=== PATIENT | female | born 1965 | race African-American/Black ===

== ENCOUNTER 2018-04-17 13:25 | Inpatient (IN) | payer MEDICARE, MEDICAID ==
[2018-04-17] VITALS (13 sets, daily range): BP systolic 171–201; BP diastolic 100–121
[~2018-04-17] VITALS: Ht 165.1 cm; Wt 74.8 kg
[~2018-04-17 13:25] MED LIST: AMLO10TA4 PO; CALC0.253 PO; CALC667C4 PO; CHOL500010 PO; CLON0.1T PO; DIAZ10TA4 PO; LOSA50TA20 PO; METO-539 PO; NEPVIT PO; OMEP20CA10 PO; ROSU10TA PO
[2018-04-17] MEDS: NITROGLYCERIN 0.4MG TABLET SL SL PRN ×4 (13:57→21:58)
[2018-04-17 14:43] LABS: BASOPHILS % 0.8 % (0.0-2.0); HEMATOCRIT. 27.6 % (36.0-48.0); LYMPHOCYTES % 13.9 % (20.0-50.0); MEAN CORPUSCULAR HEMOGLOBIN 29.1 pg (28.0-32.0); MEAN CORPUSCULAR VOLUME 89.8 fL (81.0-99.0); MEAN PLATELET VOLUME 8.1 fl (7.4-10.4); MONOCYTES % 1.9 % (2.0-8.0); NEUTROPHILS % 80.4 % (40.0-76.0); PLATELET 134 x1000/uL (130-400); RED BLOOD CELL COUNT 3.07 mill/uL (4.2-5.4); RED CELL DISTRIBUTION WIDTH 19.8 % (11.6-14.6)
[2018-04-17 14:47] LABS: CHLORIDE 101 mEq/L (98-107)
[2018-04-17] MEDS ORDERED: HYDRALAZINE 20MG/ML VIAL IV ONE (15:30)
[2018-04-17 15:50] LABS: BG BASE EXCESS -0.4 mmol/L (-2.0-2.0); BG DEOXYHEMOGLOBIN 5.8 % (0.0-5.0); BG FRACTION INSPIRED OXYGEN 100; BG HCO3 ACT 22.7 mmol/L (22.0-26.0); BG METHEMOGLOBIN 0.3 % (0.0-1.5); BG OXYGEN SATURATION 94.1 % (92.0-98.5); BG OXYHEMOGLOBIN 92.9 % (94.0-97.0); BG PCO2 31.5 mmHg (35.0-45.0); BG PH 7.476 (7.350-7.450); BG PO2 75.8 mmHg (75.0-100.0); BG SAMPLE SITE RIGHT RADIAL; BG TOTAL HEMOGLOBIN 9.3 g/dL (12.0-18.0); BG VENT MODE MASK - NRB
[2018-04-17] MEDS: AMLODIPINE 10MG TABLET PO SCH (18:00)
[2018-04-17] MEDS ORDERED: MORPHINE SULFATE 4 MG/ML CPJ (NOT FOR IM USE) IV PRN (18:00)
[2018-04-17] MEDS ORDERED: HYDROCODONE/ACETAMINOPHEN 5/325MG TABLET PO PRN (18:00)
[2018-04-17] MEDS ORDERED: DOCUSATE SODIUM 100MG CAPSULE PO PRN (18:00)
[2018-04-17] MEDS ORDERED: DIPHENHYDRAMINE 50MG/ML VIAL IV PRN (18:00)
[2018-04-17] MEDS ORDERED: ONDANSETRON HCL 4MG/2ML VIAL IV PRN (18:00)
[2018-04-17] MEDS: LOSARTAN POTASSIUM 50 MG TABLET PO SCH (18:30)
[2018-04-17] MEDS: CLONIDINE 0.1MG TABLET PO PRN (20:34)
[2018-04-17] MEDS: ACETAMINOPHEN 325MG TABLET PO PRN (22:02)
[2018-04-18] VITALS (14 sets, daily range): BP systolic 157–195; BP diastolic 76–110
[2018-04-18] MEDS: CLONIDINE 0.1MG TABLET PO PRN ×2 (02:58→18:07)
[2018-04-18] MEDS: LOSARTAN POTASSIUM 50 MG TABLET PO SCH (05:06)
[2018-04-18] MEDS: AMLODIPINE 10MG TABLET PO SCH (05:07)
[2018-04-18] MEDS: HYDRALAZINE HCL 50MG TABLET PO SCH ×4 (07:11→21:13)
[2018-04-18 07:37] LABS: BASOPHILS % 0.4 % (0.0-2.0); EOSINOPHILS % 1.2 % (0.0-5.0); HEMATOCRIT. 25.8 % (36.0-48.0); HEMOGLOBIN. 8.4 g/dL (12.0-16.0); LYMPHOCYTES % 12.7 % (20.0-50.0); MEAN CORPUSCULAR HEMOGLOBIN 29.1 pg (28.0-32.0); MEAN CORPUSCULAR VOLUME 89.3 fL (81.0-99.0); MEAN PLATELET VOLUME 8.9 fl (7.4-10.4); MONOCYTES % 1.9 % (2.0-8.0); NEUTROPHILS % 83.8 % (40.0-76.0); PLATELET 122 x1000/uL (130-400); RED BLOOD CELL COUNT 2.89 mill/uL (4.2-5.4); RED CELL DISTRIBUTION WIDTH 20.3 % (11.6-14.6)
[2018-04-18] MEDS ORDERED: SEVELAMER CARBONATE 800 MG TABLET PO SCH ×2 (08:00→13:00)
[2018-04-18 08:16] LABS: CHLORIDE 98 mEq/L (98-107)
[2018-04-18] MEDS: ASPIRIN 81MG EC TABLET PO SCH ×2 (08:54→16:06)
[2018-04-18] MEDS ORDERED: HYDRALAZINE HCL 50MG TABLET PO SCH (09:00)
[2018-04-18] MEDS: SEVELAMER CARBONATE 800 MG TABLET PO SCH ×3 (09:02→18:54)
[2018-04-18] MEDS: METOPROLOL TARTRATE 25MG TABLET PO SCH ×2 (09:03→17:07)
[2018-04-18] MEDS: CLONIDINE 0.2MG TABLET PO SCH ×3 (13:23→21:13)
[2018-04-18] MEDS: ACETAMINOPHEN 325MG TABLET PO PRN (13:54)
[2018-04-18 16:19] LABS: BG BASE EXCESS 1.8 mmol/L (-2.0-2.0); BG CARBOXYHEMOGLOBIN 1.2 % (0.5-1.5); BG FRACTION INSPIRED OXYGEN 40; BG HCO3 ACT 25.3 mmol/L (22.0-26.0); BG OXYGEN SATURATION 93.9 % (92.0-98.5); BG OXYHEMOGLOBIN 92.8 % (94.0-97.0); BG PCO2 35.6 mmHg (35.0-45.0); BG PO2 69.8 mmHg (75.0-100.0); BG SAMPLE SITE RIGHT RADIAL; BG TOTAL HEMOGLOBIN 9.8 g/dL (12.0-18.0); BG VENT MODE NASAL CANNULA
[2018-04-18] MEDS ORDERED: HYDRALAZINE HCL 100MG TABLET PO SCH (22:00)
[2018-04-18] MEDS ORDERED: HYDRALAZINE HCL 50MG TABLET PO NR (22:15)
[2018-04-18] MEDS: ZOLPIDEM TARTRATE 5MG TABLET PO PRN (22:17)
[2018-04-19] VITALS (14 sets, daily range): BP systolic 149–205; BP diastolic 92–117
[2018-04-19] MEDS: CLONIDINE 0.1MG TABLET PO PRN ×2 (00:10→09:54)
[2018-04-19] MEDS: HYDRALAZINE HCL 100MG TABLET PO SCH ×3 (05:28→21:09)
[2018-04-19] MEDS: CLONIDINE 0.2MG TABLET PO SCH ×3 (05:28→21:10)
[2018-04-19] MEDS: SEVELAMER CARBONATE 800 MG TABLET PO SCH ×3 (08:42→17:36)
[2018-04-19] MEDS: LOSARTAN POTASSIUM 50 MG TABLET PO SCH (08:52)
[2018-04-19] MEDS: ASPIRIN 81MG EC TABLET PO SCH (08:52)
[2018-04-19] MEDS: METOPROLOL TARTRATE 25MG TABLET PO SCH ×2 (08:52→17:36)
[2018-04-19] MEDS: AMLODIPINE 10MG TABLET PO SCH (08:53)
[2018-04-19 11:59] LABS: EOSINOPHILS % 3.9 % (0.0-5.0); HEMATOCRIT. 26.1 % (36.0-48.0); HEMOGLOBIN. 8.5 g/dL (12.0-16.0); LYMPHOCYTES % 15.6 % (20.0-50.0); MEAN CORPUSCULAR HEMOGLOBIN 29.5 pg (28.0-32.0); MEAN CORPUSCULAR VOLUME 90.1 fL (81.0-99.0); MEAN PLATELET VOLUME 8.9 fl (7.4-10.4); MONOCYTES % 2.7 % (2.0-8.0); NEUTROPHILS % 76.8 % (40.0-76.0); PLATELET 128 x1000/uL (130-400); RED BLOOD CELL COUNT 2.89 mill/uL (4.2-5.4); RED CELL DISTRIBUTION WIDTH 19.6 % (11.6-14.6)
[2018-04-19] MEDS: ACETAMINOPHEN 325MG TABLET PO PRN (12:16)
[2018-04-19] MEDS: ZOLPIDEM TARTRATE 5MG TABLET PO PRN (21:09)
[2018-04-20] VITALS: BP 168/99
[2018-04-20 02:00] VITALS: BP 177/97
[2018-04-20] MEDS: CLONIDINE 0.1MG TABLET PO PRN (02:05)
[2018-04-20 04:00] VITALS: BP 193/95
[2018-04-20] MEDS: ACETAMINOPHEN 325MG TABLET PO PRN (04:47)
[2018-04-20] MEDS: HYDRALAZINE HCL 100MG TABLET PO SCH (05:02)
[2018-04-20] MEDS: CLONIDINE 0.2MG TABLET PO SCH (05:02)
[2018-04-20 06:00] VITALS: BP 161/90
[2018-04-20 07:16] LABS: BASOPHILS % 0.6 % (0.0-2.0); EOSINOPHILS % 4.3 % (0.0-5.0); HEMATOCRIT. 25.2 % (36.0-48.0); HEMOGLOBIN. 8.2 g/dL (12.0-16.0); LYMPHOCYTES % 19.3 % (20.0-50.0); MEAN CORPUSCULAR HEMOGLOBIN 29.3 pg (28.0-32.0); MEAN CORPUSCULAR VOLUME 90.4 fL (81.0-99.0); MEAN PLATELET VOLUME 8.6 fl (7.4-10.4); MONOCYTES % 1.9 % (2.0-8.0); NEUTROPHILS % 73.9 % (40.0-76.0); PLATELET 144 x1000/uL (130-400); RED BLOOD CELL COUNT 2.79 mill/uL (4.2-5.4); RED CELL DISTRIBUTION WIDTH 19.7 % (11.6-14.6)
[2018-04-20] MEDS: LOSARTAN POTASSIUM 50 MG TABLET PO SCH (08:56)
[2018-04-20] MEDS: SEVELAMER CARBONATE 800 MG TABLET PO SCH (08:56)
[2018-04-20] MEDS: ASPIRIN 81MG EC TABLET PO SCH (08:57)
[2018-04-20] MEDS: METOPROLOL TARTRATE 25MG TABLET PO SCH (08:57)
[2018-04-20] MEDS: AMLODIPINE 10MG TABLET PO SCH (08:57)
[2018-04-20] MEDS ORDERED: MINOXIDIL 2.5MG TABLET PO SCH (15:45)
== END 2018-04-20 11:05 | disposition left against medical advice (07) | DRG 291 ==
LOC: ER 13:25 → 5EST 15:21 → EDBEDREQ 15:27 → EDBEDREQTM 15:27 → EDBEDREQSVC 16:48 → ENRESERV 16:50 → SUPCPDRO 17:51
PROVIDERS: ADMIT Hospitalist; ATTEND Hospitalist
PROC: 5A09357 Assistance with Respiratory Ventilation, Less than 24 Consecutive Hours, Continuous Positive Airway Pressure (ICD-10-PCS; principal; 2018-04-17)
PROC: 5A1D70Z Performance of Urinary Filtration, Intermittent, Less than 6 Hours Per Day (ICD-10-PCS; 2018-04-17)
PROC: 5A1D70Z Performance of Urinary Filtration, Intermittent, Less than 6 Hours Per Day (ICD-10-PCS; 2018-04-18)
PROC: 5A1D70Z Performance of Urinary Filtration, Intermittent, Less than 6 Hours Per Day (ICD-10-PCS; 2018-04-20)
DX: I13.2 Hypertensive heart and chronic kidney disease with heart failure and with stage 5 chronic kidney disease, or end stage renal disease (principal); I50.33 Acute on chronic diastolic (congestive) heart failure; N18.6 End stage renal disease; N25.81 Secondary hyperparathyroidism of renal origin; Z53.21 Procedure and treatment not carried out due to patient leaving prior to being seen by health care provider; E87.5 Hyperkalemia; I16.0 Hypertensive urgency; R09.02 Hypoxemia; D63.1 Anemia in chronic kidney disease; E78.5 Hyperlipidemia, unspecified; Z99.2 Dependence on renal dialysis; Z91.15 Patient's noncompliance with renal dialysis; Z88.5 Allergy status to narcotic agent; Z79.899 Other long term (current) drug therapy
CPT/HCPCS: 36415; 36600; 71045; 80048; 80053; 82375; 82805; 83880; 84484; 85025; 93005; 93306; 96374; 99291; J0360; J7030

== ENCOUNTER 2018-07-21 11:27 | Inpatient (IN) | payer MEDICARE, MEDICAID ==
[~2018-07-21] VITALS: Ht 152.4 cm; Wt 74.8 kg
[2018-07-21 14:23] LABS: HEMATOCRIT. 38.6 % (36.0-48.0); HEMOGLOBIN. 12.5 g/dL (12.0-16.0); MEAN CORPUSCULAR HEMOGLOBIN 30.7 pg (28.0-32.0); MEAN CORPUSCULAR VOLUME 94.5 fL (81.0-99.0); PLATELET 102 x1000/uL (130-400); RED BLOOD CELL COUNT 4.08 mill/uL (4.2-5.4); RED CELL DISTRIBUTION WIDTH 17.6 % (11.6-14.6)
[2018-07-21] MEDS ORDERED: HYDRALAZINE 20MG/ML VIAL IV ONE (14:30)
[2018-07-21 14:40] LABS: CHLORIDE 95 mEq/L (98-107)
[2018-07-21] MEDS ORDERED: NICARDIPINE 50 MG in SODIUM CHLORIDE 0.9% 230 ML IV PRN (17:15)
[2018-07-21] MEDS: NIFEDIPINE XL 60MG TAB PO SCH (18:05)
[2018-07-21] MEDS ORDERED: FOLIC ACID/VITAMIN B COMP W-C TABLET PO NR (18:15)
[2018-07-21] MEDS: NITROPRUSSIDE IV PRN (21:49)
[2018-07-21] MEDS: WATER IV PRN (21:49)
[2018-07-21] MEDS: DEXT 5% IV PRN (21:49)
[2018-07-21 23:17] VITALS: BP 178/104
[2018-07-21 23:20] VITALS: BP 178/98
[2018-07-21 23:30] VITALS: BP 169/93
[2018-07-21 23:45] VITALS: BP 173/93
[2018-07-22] VITALS (47 sets, daily range): BP systolic 132–190; BP diastolic 70–108
[2018-07-22] MEDS ORDERED: HYDRALAZINE HCL 100MG TABLET PO SCH ×2 (06:00→21:00)
[2018-07-22 06:15] LABS: BASOPHILS % 0.5 % (0.0-2.0); EOSINOPHILS % 2.6 % (0.0-5.0); HEMATOCRIT. 33.8 % (36.0-48.0); LYMPHOCYTES % 20.2 % (20.0-50.0); MEAN CORPUSCULAR HEMOGLOBIN 30.7 pg (28.0-32.0); MEAN CORPUSCULAR VOLUME 94.4 fL (81.0-99.0); MEAN PLATELET VOLUME 8.9 fl (7.4-10.4); MONOCYTES % 7.8 % (2.0-8.0); NEUTROPHILS % 68.9 % (40.0-76.0); PLATELET 114 x1000/uL (130-400); RED BLOOD CELL COUNT 3.58 mill/uL (4.2-5.4); RED CELL DISTRIBUTION WIDTH 17.4 % (11.6-14.6)
[2018-07-22 06:35] LABS: CHLORIDE 100 mEq/L (98-107)
[2018-07-22] MEDS: DEXT 5% IV PRN (07:54)
[2018-07-22] MEDS: WATER IV PRN (07:54)
[2018-07-22] MEDS: NITROPRUSSIDE IV PRN (07:54)
[2018-07-22] MEDS: FOLIC ACID/VITAMIN B COMP W-C TABLET PO SCH ×2 (09:20→11:27)
[2018-07-22] MEDS: CALCIUM ACETATE 667MG CAPSULE PO SCH ×3 (09:21→17:27)
[2018-07-22] MEDS: NIFEDIPINE XL 60MG TAB PO SCH ×2 (09:24→16:36)
[2018-07-22] MEDS ORDERED: HYDR100T26 PO (10:10)
[2018-07-22] MEDS ORDERED: LOSA100T3 PO (10:10)
[2018-07-22] MEDS ORDERED: LABE100T5 PO (10:10)
[2018-07-22] MEDS ORDERED: AMLODIPINE 10MG TABLET PO SCH (10:15)
[2018-07-22] MEDS: LABETALOL HCL 300MG TABLET PO SCH ×2 (11:28→22:49)
[2018-07-22] MEDS: ONDANSETRON HCL 4MG/2ML INJ IV PRN ×2 (16:35→22:55)
[2018-07-22] MEDS: HYDRALAZINE HCL 100MG TABLET PO SCH (16:36)
[2018-07-22] MEDS: ATORVASTATIN CALCIUM 10MG TABLET PO SCH (22:49)
[2018-07-23] VITALS (64 sets, daily range): BP systolic 107–205; BP diastolic 62–120
[2018-07-23] MEDS: DEXT 5% IV PRN ×3 (00:10→17:45)
[2018-07-23] MEDS: WATER IV PRN ×3 (00:10→17:45)
[2018-07-23] MEDS: NITROPRUSSIDE IV PRN ×3 (00:10→17:45)
[2018-07-23] MEDS ORDERED: SIMETHICONE 80MG TABLET CHEW PO PRN (05:00)
[2018-07-23] MEDS: CALCIUM ACETATE 667MG CAPSULE PO SCH ×3 (08:16→17:44)
[2018-07-23] MEDS: LOSARTAN POTASSIUM 100 MG TABLET PO SCH (08:16)
[2018-07-23] MEDS: NIFEDIPINE XL 60MG TAB PO SCH ×2 (08:17→17:44)
[2018-07-23] MEDS: HYDRALAZINE HCL 100MG TABLET PO SCH ×3 (08:17→17:44)
[2018-07-23] MEDS: SIMETHICONE 80MG TABLET CHEW PO PRN ×3 (08:23→20:42)
[2018-07-23] MEDS: PANTOPRAZOLE 40MG DR TABLET PO SCH ×2 (09:31→20:37)
[2018-07-23] MEDS: LABETALOL HCL 300MG TABLET PO SCH ×2 (09:31→20:37)
[2018-07-23] MEDS: ONDANSETRON HCL 4MG/2ML INJ IV PRN ×2 (09:43→19:15)
[2018-07-23 10:12] LABS: BASOPHILS % 0.4 % (0.0-2.0); EOSINOPHILS % 0.5 % (0.0-5.0); HEMATOCRIT. 34.7 % (36.0-48.0); HEMOGLOBIN. 11.3 g/dL (12.0-16.0); LYMPHOCYTES % 16.5 % (20.0-50.0); MEAN CORPUSCULAR HEMOGLOBIN 30.5 pg (28.0-32.0); MEAN CORPUSCULAR VOLUME 93.4 fL (81.0-99.0); MEAN PLATELET VOLUME 9.1 fl (7.4-10.4); MONOCYTES % 6.3 % (2.0-8.0); NEUTROPHILS % 76.3 % (40.0-76.0); PLATELET 105 x1000/uL (130-400); RED BLOOD CELL COUNT 3.72 mill/uL (4.2-5.4); RED CELL DISTRIBUTION WIDTH 17.5 % (11.6-14.6)
[2018-07-23] MEDS ORDERED: HEPARIN SODIUM 1,000 UNIT/1ML VIAL IV NR (13:30)
[2018-07-23] MEDS: ATORVASTATIN CALCIUM 10MG TABLET PO SCH (20:36)
[2018-07-23] MEDS: ZOLPIDEM TARTRATE 5MG TABLET PO PRN (20:37)
[2018-07-23] MEDS: CLONIDINE 0.2MG TABLET PO SCH (22:11)
[2018-07-24] VITALS (56 sets, daily range): BP systolic 106–200; BP diastolic 59–104
[2018-07-24] MEDS: DEXT 5% IV PRN ×2 (01:03→08:59)
[2018-07-24] MEDS: NITROPRUSSIDE IV PRN ×2 (01:03→08:59)
[2018-07-24] MEDS: WATER IV PRN ×2 (01:03→08:59)
[2018-07-24] MEDS: CLONIDINE 0.2MG TABLET PO SCH ×3 (05:37→21:43)
[2018-07-24 06:10] LABS: BASOPHILS % 0.2 % (0.0-2.0); EOSINOPHILS % 0.2 % (0.0-5.0); HEMATOCRIT. 37.1 % (36.0-48.0); HEMOGLOBIN. 11.9 g/dL (12.0-16.0); LYMPHOCYTES % 22.8 % (20.0-50.0); MEAN CORPUSCULAR VOLUME 93.4 fL (81.0-99.0); MEAN PLATELET VOLUME 8.7 fl (7.4-10.4); MONOCYTES % 7.2 % (2.0-8.0); NEUTROPHILS % 69.6 % (40.0-76.0); PLATELET 130 x1000/uL (130-400); RED BLOOD CELL COUNT 3.98 mill/uL (4.2-5.4)
[2018-07-24] MEDS: PANTOPRAZOLE 40MG DR TABLET PO SCH ×2 (09:05→20:22)
[2018-07-24] MEDS: CALCIUM ACETATE 667MG CAPSULE PO SCH ×3 (09:05→17:32)
[2018-07-24] MEDS: FOLIC ACID/VITAMIN B COMP W-C TABLET PO SCH (09:05)
[2018-07-24] MEDS: NIFEDIPINE XL 60MG TAB PO SCH ×2 (09:05→17:33)
[2018-07-24] MEDS: LOSARTAN POTASSIUM 100 MG TABLET PO SCH (09:05)
[2018-07-24] MEDS: LABETALOL HCL 300MG TABLET PO SCH ×2 (09:05→20:23)
[2018-07-24] MEDS: HYDRALAZINE HCL 100MG TABLET PO SCH ×3 (09:06→17:33)
[2018-07-24] MEDS: SIMETHICONE 80MG TABLET CHEW PO PRN ×3 (09:11→21:43)
[2018-07-24] MEDS: MINOXIDIL 2.5MG TABLET PO SCH ×2 (11:19→20:23)
[2018-07-24 13:10] LABS: HCG SCREEN NEGATIVE
[2018-07-24] MEDS: SILDENAFIL CITRATE 20MG TABLET PO SCH ×2 (13:53→21:43)
[2018-07-24] MEDS: ATORVASTATIN CALCIUM 10MG TABLET PO SCH (20:23)
[2018-07-24] MEDS: ZOLPIDEM TARTRATE 5MG TABLET PO PRN (21:49)
[2018-07-25] VITALS (35 sets, daily range): BP systolic 102–156; BP diastolic 56–104
[2018-07-25] MEDS: CLONIDINE 0.2MG TABLET PO SCH ×2 (06:32→14:00)
[2018-07-25] MEDS: SILDENAFIL CITRATE 20MG TABLET PO SCH ×2 (06:32→14:00)
[2018-07-25 06:33] LABS: BASOPHILS % 0.4 % (0.0-2.0); EOSINOPHILS % 1.6 % (0.0-5.0); HEMATOCRIT. 39.1 % (36.0-48.0); HEMOGLOBIN. 12.7 g/dL (12.0-16.0); LYMPHOCYTES % 31.1 % (20.0-50.0); MEAN CORPUSCULAR HEMOGLOBIN 30.3 pg (28.0-32.0); MEAN CORPUSCULAR VOLUME 93.7 fL (81.0-99.0); MEAN PLATELET VOLUME 8.8 fl (7.4-10.4); MONOCYTES % 8.3 % (2.0-8.0); NEUTROPHILS % 58.6 % (40.0-76.0); PLATELET 151 x1000/uL (130-400); RED BLOOD CELL COUNT 4.17 mill/uL (4.2-5.4); RED CELL DISTRIBUTION WIDTH 17.6 % (11.6-14.6)
[2018-07-25] MEDS: CALCIUM ACETATE 667MG CAPSULE PO SCH ×2 (08:46→13:12)
[2018-07-25] MEDS: PANTOPRAZOLE 40MG DR TABLET PO SCH (08:46)
[2018-07-25] MEDS: SIMETHICONE 80MG TABLET CHEW PO PRN ×2 (08:46→08:47)
[2018-07-25] MEDS: HYDRALAZINE HCL 100MG TABLET PO SCH ×2 (08:47→14:43)
[2018-07-25] MEDS: NIFEDIPINE XL 60MG TAB PO SCH ×2 (09:00→17:00)
[2018-07-25] MEDS: LOSARTAN POTASSIUM 100 MG TABLET PO SCH (09:00)
[2018-07-25] MEDS: LABETALOL HCL 300MG TABLET PO SCH ×2 (09:00→14:43)
[2018-07-25] MEDS: MINOXIDIL 2.5MG TABLET PO SCH (09:00)
[2018-07-25] MEDS: FOLIC ACID/VITAMIN B COMP W-C TABLET PO SCH (09:21)
[2018-07-25] MEDS ORDERED: MINO2.5T2 PO (16:11)
[2018-07-25] MEDS ORDERED: NIFE60TA64 PO (16:11)
[2018-07-25] MEDS ORDERED: HYDR-4134 PO (16:11)
[2018-07-25] MEDS ORDERED: LABE300T3 PO (16:11)
[2018-07-25] MEDS ORDERED: LOSA100T14 MT (16:11)
[2018-07-25] MEDS ORDERED: REV20 PO (16:11)
[2018-07-25] MEDS ORDERED: NIFE90TA2 PO (16:11)
[2018-07-25] MEDS ORDERED: CLON0.2T PO (16:23)
[2018-08-02 15:11] LABS: 7-AMINOCLONAZEPAM CONFIRM Negative (.); ALPRAZOLAM CONFIRM Negative (.); CHLORDIAZEPOXIDE CONFIRM Negative (.); CLONAZEPAM CONFIRM Negative (.); DESMETHYLCHLORDIAZEPOXIDE Negative (.); DIAZEPAM CONFIRM Negative (.); FLURAZEPAM CONFIRM Negative (.); LORAZEPAM CONFIRM Negative (.); MIDAZOLAM CONFIRM Negative (.); OXAZEPAM CONFIRM Negative (.); TEMAZEPAM CONFIRM Negative (.); TRIAZOLAM CONFIRM Negative (.)
== END 2018-07-25 17:15 | disposition home or self-care (01) | DRG 304 ==
LOC: ER 12:43 → CVICU 16:41 → EDBEDREQTM 16:43 → EDBEDREQ 16:43 → ENRESERV 19:27 → EDBEDREQSVC 20:39 → EDBEDREQTM 20:39 → EDBEDREQSVC 20:57 → ENRESERV 21:16
PROVIDERS: ADMIT Internal Medicine; ATTEND Internal Medicine
PROC: 5A1D70Z Performance of Urinary Filtration, Intermittent, Less than 6 Hours Per Day (ICD-10-PCS; principal; 2018-07-23)
DX: I16.1 Hypertensive emergency (principal); N18.6 End stage renal disease; I50.32 Chronic diastolic (congestive) heart failure; I13.2 Hypertensive heart and chronic kidney disease with heart failure and with stage 5 chronic kidney disease, or end stage renal disease; Z99.2 Dependence on renal dialysis; D63.1 Anemia in chronic kidney disease; I27.20 Pulmonary hypertension, unspecified; F41.9 Anxiety disorder, unspecified; Z82.49 Family history of ischemic heart disease and other diseases of the circulatory system; Z88.6 Allergy status to analgesic agent; Z91.19 Patient's noncompliance with other medical treatment and regimen; Z79.899 Other long term (current) drug therapy
CPT/HCPCS: 36415; 71045; 78707; 80048; 80307; 82164; 82533; 83735; 83880; 84244; 84484; 84703; 93005; 93306; 96374; 97162; 99285; A9562; C1893; J0360; J1644; J2405; J3490; J7030; J7060

== ENCOUNTER 2018-11-24 10:00 | Inpatient (IN) | payer MEDICARE, MEDICAID ==
[~2018-11-24] VITALS: Ht 165.1 cm; Wt 69.9 kg
[~2018-11-24 10:00] MED LIST changes: -CLON0.1T PO; +CLON0.2T PO; -DIAZ10TA4 PO; +HYDR-4134 PO; +LABE100T5 PO; +LOSA100T3 PO; -LOSA50TA20 PO; -METO-539 PO; +MINO2.5T2 PO; +NIFE60TA64 PO; +REV20 PO
[2018-11-24 10:47] LABS: BASOPHILS % 0.5 % (0.0-2.0); EOSINOPHILS % 0.6 % (0.0-5.0); HEMATOCRIT. 29.3 % (36.0-48.0); HEMOGLOBIN. 9.8 g/dL (12.0-16.0); LYMPHOCYTES % 21.8 % (20.0-50.0); MEAN CORPUSCULAR HEMOGLOBIN 31.6 pg (28.0-32.0); MEAN CORPUSCULAR VOLUME 94.8 fL (81.0-99.0); MEAN PLATELET VOLUME 9.1 fl (7.4-10.4); MONOCYTES % 1.8 % (2.0-8.0); NEUTROPHILS % 75.3 % (40.0-76.0); PLATELET 138 x1000/uL (130-400); RED BLOOD CELL COUNT 3.09 mill/uL (4.2-5.4); RED CELL DISTRIBUTION WIDTH 16.1 % (11.6-14.6)
[2018-11-24 10:53] LABS: CHLORIDE 94 mEq/L (98-107)
[2018-11-24 12:14] LABS: BG BASE EXCESS 7.5 mmol/L (-2.0-2.0); BG CARBOXYHEMOGLOBIN 1.4 % (0.5-1.5); BG DEOXYHEMOGLOBIN 14.7 % (0.0-5.0); BG METHEMOGLOBIN 0.3 % (0.0-1.5); BG OXYHEMOGLOBIN 83.6 % (94.0-97.0); BG PCO2 39.1 mmHg (35.0-45.0); BG PH 7.517 (7.350-7.450); BG PO2 50.2 mmHg (75.0-100.0); BG SAMPLE SITE RIGHT RADIAL; BG TOTAL HEMOGLOBIN 10.1 g/dL (12.0-18.0); BG VENT MODE NASAL CANNULA
[2018-11-24] MEDS ORDERED: HYDRALAZINE 20MG/ML VIAL IV ONE (12:15)
[2018-11-24] MEDS: CLONIDINE 0.2MG TABLET PO SCH ×2 (16:09→21:11)
[2018-11-24] MEDS ORDERED: NIFEDIPINE XL 60MG TAB PO NR (16:15)
[2018-11-24] MEDS ORDERED: ACETAMINOPHEN 325MG TABLET PO PRN (17:30)
[2018-11-24] MEDS ORDERED: DOCUSATE SODIUM 100MG CAPSULE PO PRN (17:30)
[2018-11-24] MEDS ORDERED: GUAIFENESIN 200MG/10ML SUGAR FREE UDC PO PRN (17:30)
[2018-11-24] MEDS ORDERED: IPRATROPIUM/ALBUTEROL 0.5-3(2.5)MG/3ML NEB INH PRN (17:30)
[2018-11-24] MEDS ORDERED: ONDANSETRON HCL 4MG/2ML INJ IV PRN (17:30)
[2018-11-24] MEDS ORDERED: MAGNESIUM/ALUMINUM HYDROXIDE/SIMETHICONE 30ML UDC PO PRN (17:30)
[2018-11-24] MEDS: NIFEDIPINE XL 60MG TAB PO SCH (17:54)
[2018-11-24] MEDS: LOSARTAN POTASSIUM 50 MG TABLET PO SCH ×2 (17:54→21:12)
[2018-11-24 18:00] VITALS: BP_SYST 177; BP_SYST 183; BP_DIAS 102; BP_DIAS 98
[2018-11-24] MEDS: CLONIDINE 0.1MG TABLET PO PRN (18:00)
[2018-11-24] MEDS ORDERED: INFLUENZA VIRUS VACCINE(AFLURIA) 0.5ML SYR IM ONE (19:30)
[2018-11-24 20:00] VITALS: BP 188/96
[2018-11-24] MEDS: HYDRALAZINE HCL 50MG TABLET PO SCH (21:13)
[2018-11-24] MEDS: SILDENAFIL CITRATE 20MG TABLET PO SCH (21:14)
[2018-11-24] MEDS: SODIUM CHLORIDE 0.9% INJ 3ML FLUSH IVF SCH (21:16)
[2018-11-24] MEDS: LORAZEPAM 0.5MG TABLET PO PRN (21:21)
[2018-11-24 22:00] VITALS: BP 148/78
[2018-11-25] VITALS (12 sets, daily range): BP systolic 143–179; BP diastolic 81–95
[2018-11-25] MEDS ORDERED: LOSA50TA20 PO (05:59)
[2018-11-25] MEDS ORDERED: MINO2.5T2 PO (05:59)
[2018-11-25] MEDS ORDERED: LABE100T5 MT (05:59)
[2018-11-25] MEDS ORDERED: CLON0.2T MT (05:59)
[2018-11-25] MEDS ORDERED: NIFE90TA43 PO (05:59)
[2018-11-25] MEDS: SILDENAFIL CITRATE 20MG TABLET PO SCH ×3 (06:00→21:23)
[2018-11-25] MEDS: HYDRALAZINE HCL 50MG TABLET PO SCH (06:19)
[2018-11-25] MEDS: SODIUM CHLORIDE 0.9% INJ 3ML FLUSH IVF SCH ×3 (06:20→21:23)
[2018-11-25] MEDS: CLONIDINE 0.2MG TABLET PO SCH ×2 (08:29→21:22)
[2018-11-25] MEDS: NIFEDIPINE XL 60MG TAB PO SCH ×2 (08:29→21:21)
[2018-11-25] MEDS: LOSARTAN POTASSIUM 50 MG TABLET PO SCH ×2 (08:29→21:21)
[2018-11-25 08:51] LABS: BASOPHILS % 0.9 % (0.0-2.0); EOSINOPHILS % 1.7 % (0.0-5.0); HEMATOCRIT. 27.1 % (36.0-48.0); LYMPHOCYTES % 19.2 % (20.0-50.0); MEAN CORPUSCULAR HEMOGLOBIN 31.4 pg (28.0-32.0); MEAN CORPUSCULAR VOLUME 94.1 fL (81.0-99.0); MEAN PLATELET VOLUME 8.7 fl (7.4-10.4); MONOCYTES % 2.2 % (2.0-8.0); PLATELET 159 x1000/uL (130-400); RED BLOOD CELL COUNT 2.87 mill/uL (4.2-5.4)
[2018-11-25 09:11] LABS: CHLORIDE 98 mEq/L (98-107)
[2018-11-25 09:20] LABS: LDL CHOLESTEROL 85 mg/dL (5-100)
[2018-11-25 09:21] LABS: CREATINE KINASE 211 IU/L (26-192); CREATINE KINASE MB FRACTION < 1.0 ng/mL (0.5-3.6); HDL CHOLESTEROL 43 mg/dL (40-59)
[2018-11-25] MEDS: HYDRALAZINE HCL 100MG TABLET PO SCH ×2 (15:39→21:21)
[2018-11-25] MEDS: LORAZEPAM 0.5MG TABLET PO PRN (21:21)
[2018-11-26] VITALS (12 sets, daily range): BP systolic 145–171; BP diastolic 76–98
[2018-11-26] MEDS: SODIUM CHLORIDE 0.9% INJ 3ML FLUSH IVF SCH ×3 (06:00→21:23)
[2018-11-26] MEDS: SILDENAFIL CITRATE 20MG TABLET PO SCH ×3 (06:00→21:23)
[2018-11-26] MEDS: HYDRALAZINE HCL 100MG TABLET PO SCH ×3 (07:11→21:22)
[2018-11-26] MEDS: LOSARTAN POTASSIUM 50 MG TABLET PO SCH ×2 (08:54→21:21)
[2018-11-26] MEDS: CLONIDINE 0.2MG TABLET PO SCH ×2 (08:54→21:22)
[2018-11-26] MEDS: NIFEDIPINE XL 60MG TAB PO SCH ×2 (08:55→21:21)
[2018-11-26] MEDS ORDERED: ZOLPIDEM TARTRATE 5MG TABLET PO PRN (20:00)
[2018-11-27] VITALS (12 sets, daily range): BP systolic 163–188; BP diastolic 91–107
[2018-11-27] MEDS: CLONIDINE 0.1MG TABLET PO PRN ×2 (04:44→17:17)
[2018-11-27] MEDS: HYDRALAZINE HCL 100MG TABLET PO SCH ×3 (06:00→23:08)
[2018-11-27] MEDS: SODIUM CHLORIDE 0.9% INJ 3ML FLUSH IVF SCH ×3 (06:00→22:00)
[2018-11-27] MEDS: SILDENAFIL CITRATE 20MG TABLET PO SCH ×3 (06:00→23:08)
[2018-11-27 09:02] LABS: BASOPHILS % 0.7 % (0.0-2.0); EOSINOPHILS % 1.9 % (0.0-5.0); HEMATOCRIT. 28.4 % (36.0-48.0); HEMOGLOBIN. 9.1 g/dL (12.0-16.0); LYMPHOCYTES % 20.9 % (20.0-50.0); MEAN CORPUSCULAR HEMOGLOBIN 30.4 pg (28.0-32.0); MEAN PLATELET VOLUME 8.8 fl (7.4-10.4); NEUTROPHILS % 74.5 % (40.0-76.0); PLATELET 211 x1000/uL (130-400); RED BLOOD CELL COUNT 2.99 mill/uL (4.2-5.4); RED CELL DISTRIBUTION WIDTH 16.6 % (11.6-14.6)
[2018-11-27] MEDS: CLONIDINE 0.2MG TABLET PO SCH (09:04)
[2018-11-27] MEDS: NIFEDIPINE XL 60MG TAB PO SCH ×2 (09:04→23:07)
[2018-11-27] MEDS: LOSARTAN POTASSIUM 50 MG TABLET PO SCH ×2 (09:04→21:00)
[2018-11-27] MEDS: HYDRALAZINE 20MG/ML VIAL IV PRN (12:26)
[2018-11-27] MEDS ORDERED: CLONIDINE 0.2MG TABLET PO PRN (13:45)
[2018-11-27 14:55] LABS: BG BASE EXCESS 3.6 mmol/L (-2.0-2.0); BG CARBOXYHEMOGLOBIN 0.8 % (0.5-1.5); BG DEOXYHEMOGLOBIN 10.7 % (0.0-5.0); BG METHEMOGLOBIN 0.3 % (0.0-1.5); BG OXYGEN SATURATION 89.2 % (92.0-98.5); BG OXYHEMOGLOBIN 88.2 % (94.0-97.0); BG PCO2 36.3 mmHg (35.0-45.0); BG PO2 56.7 mmHg (75.0-100.0); BG SAMPLE SITE RIGHT RADIAL; BG TOTAL HEMOGLOBIN 10.2 g/dL (12.0-18.0); BG VENT MODE ROOM AIR
[2018-11-27] MEDS: CLONIDINE 0.3MG TABLET PO SCH ×2 (15:30→22:00)
[2018-11-28] VITALS (58 sets, daily range): BP systolic 139–194; BP diastolic 71–107
[2018-11-28 04:58] LABS: BASOPHILS % 0.6 % (0.0-2.0); EOSINOPHILS % 1.8 % (0.0-5.0); HEMATOCRIT. 27.6 % (36.0-48.0); HEMOGLOBIN. 9.1 g/dL (12.0-16.0); LYMPHOCYTES % 22.5 % (20.0-50.0); MEAN CORPUSCULAR HEMOGLOBIN 31.4 pg (28.0-32.0); MEAN CORPUSCULAR VOLUME 95.7 fL (81.0-99.0); MEAN PLATELET VOLUME 8.4 fl (7.4-10.4); NEUTROPHILS % 73.1 % (40.0-76.0); PLATELET 209 x1000/uL (130-400); RED BLOOD CELL COUNT 2.88 mill/uL (4.2-5.4); RED CELL DISTRIBUTION WIDTH 16.9 % (11.6-14.6)
[2018-11-28 05:07] LABS: INR 1.1; PROTHROMBIN TIME 11.2 sec (9.1-11.1)
[2018-11-28 05:19] LABS: CHLORIDE 102 mEq/L (98-107)
[2018-11-28] MEDS: SILDENAFIL CITRATE 20MG TABLET PO SCH ×3 (06:00→21:37)
[2018-11-28] MEDS: HYDRALAZINE HCL 100MG TABLET PO SCH ×3 (06:00→21:36)
[2018-11-28] MEDS: CLONIDINE 0.3MG TABLET PO SCH ×3 (06:00→21:36)
[2018-11-28] MEDS: SODIUM CHLORIDE 0.9% INJ 3ML FLUSH IVF SCH ×3 (06:00→21:37)
[2018-11-28] MEDS ORDERED: BUPIVACAINE/EPINEPH/PF 0.25%/0.0005 10ML ONE (06:03)
[2018-11-28] MEDS ORDERED: SKIN ADHESIVE 0.7 GM EA TOP ONE (06:04)
[2018-11-28] MEDS ORDERED: BACITRACIN 50,000 UNITS/VIAL ONE (06:04)
[2018-11-28] MEDS ORDERED: BACITRACIN 15GM TUBE TOP ONE (06:04)
[2018-11-28] MEDS ORDERED: PHENYLEPHRINE 10 MG in DEXTROSE 5% WATER 250 ML IV PRN (07:00)
[2018-11-28] MEDS ORDERED: EPINEPHRINE 4 MG in DEXT 5% WATER 246 ML IV PRN (07:30)
[2018-11-28] MEDS ORDERED: CEFAZOLIN 2,000 MG in DEXT 5% WATER 100 ML IV PRN (07:30)
[2018-11-28] MEDS ORDERED: NOREPINEPHRINE 4 MG in DEXT 5% WATER 246 ML IV PRN (07:30)
[2018-11-28] MEDS ORDERED: FENTANYL CITRATE/PF 50MCG/ML 2ML VIAL ONE ×2 (07:31→09:20)
[2018-11-28] MEDS ORDERED: MIDAZOLAM HCL 5 MG/ML VIAL ONE (07:31)
[2018-11-28] MEDS ORDERED: DEXAMETHASONE 4MG/ML 1ML VIAL ONE (07:33)
[2018-11-28] MEDS ORDERED: PROPOFOL 200MG/20ML VIAL IV ONE (07:33)
[2018-11-28] MEDS ORDERED: ONDANSETRON HCL 4MG/2ML INJ ONE (07:33)
[2018-11-28] MEDS ORDERED: MIDAZOLAM HCL 2 MG/2 ML VIAL ONE (07:34)
[2018-11-28] MEDS ORDERED: DIPHENHYDRAMINE 50MG/ML VIAL ONE (07:34)
[2018-11-28] MEDS ORDERED: NEOSTIGMINE METHYLSULFATE 1MG/ML 10 ML VIAL ONE (08:57)
[2018-11-28] MEDS: LOSARTAN POTASSIUM 50 MG TABLET PO SCH ×2 (09:00→20:33)
[2018-11-28] MEDS: NIFEDIPINE XL 60MG TAB PO SCH ×2 (09:00→20:33)
[2018-11-28] MEDS: HYDRALAZINE 20MG/ML VIAL IV PRN (10:35)
[2018-11-28] MEDS ORDERED: MORPHINE SULFATE 4 MG/ML CPJ (NOT FOR IM USE) IV ONE (10:45)
[2018-11-28] MEDS ORDERED: MORPHINE SULFATE 4 MG/ML CPJ (NOT FOR IM USE) IV PRN (10:45)
[2018-11-28] MEDS ORDERED: NICARDIPINE 40MG/200ML PREMIX 200 ML IV PRN (11:45)
[2018-11-28] MEDS: NICARDIPINE 50 MG in SODIUM CHLORIDE 0.9% 230 ML IV PRN ×2 (12:26→19:06)
[2018-11-28] MEDS: HYDROMORPHONE HCL/PF 2MG/ML CPJ IV NR ×4 (12:27→22:47)
[2018-11-28] MEDS: HYDROMORPHONE HCL/PF 2MG/ML CPJ IV PRN (19:06)
[2018-11-28] MEDS ORDERED: EPOETIN ALFA 4000UNITS/ML VIAL SUBCUT SCH (21:00)
[2018-11-29] VITALS (99 sets, daily range): BP systolic 109–167; BP diastolic 58–90
[2018-11-29] MEDS: NICARDIPINE 50 MG in SODIUM CHLORIDE 0.9% 230 ML IV PRN ×2 (00:34→09:55)
[2018-11-29] MEDS: HYDROMORPHONE HCL/PF 2MG/ML CPJ IV PRN ×5 (02:44→21:17)
[2018-11-29] MEDS: SODIUM CHLORIDE 0.9% INJ 3ML FLUSH IVF SCH ×3 (05:28→22:37)
[2018-11-29] MEDS: SILDENAFIL CITRATE 20MG TABLET PO SCH ×3 (06:00→22:58)
[2018-11-29] MEDS: CLONIDINE 0.3MG TABLET PO SCH ×3 (06:00→22:58)
[2018-11-29] MEDS: HYDRALAZINE HCL 100MG TABLET PO SCH ×3 (06:00→22:00)
[2018-11-29 07:04] LABS: BASOPHILS % 0.3 % (0.0-2.0); HEMATOCRIT. 31.2 % (36.0-48.0); HEMOGLOBIN. 10.1 g/dL (12.0-16.0); LYMPHOCYTES % 7.9 % (20.0-50.0); MEAN CORPUSCULAR HEMOGLOBIN 31.1 pg (28.0-32.0); MEAN CORPUSCULAR VOLUME 96.1 fL (81.0-99.0); MEAN PLATELET VOLUME 8.5 fl (7.4-10.4); MONOCYTES % 3.9 % (2.0-8.0); NEUTROPHILS % 87.9 % (40.0-76.0); PLATELET 293 x1000/uL (130-400); RED BLOOD CELL COUNT 3.25 mill/uL (4.2-5.4)
[2018-11-29] MEDS: LOSARTAN POTASSIUM 50 MG TABLET PO SCH ×2 (09:16→21:16)
[2018-11-29] MEDS: NIFEDIPINE XL 60MG TAB PO SCH ×2 (09:18→21:16)
[2018-11-30] VITALS (25 sets, daily range): BP systolic 108–137; BP diastolic 51–86
[2018-11-30 05:21] LABS: BASOPHILS % 0.6 % (0.0-2.0); EOSINOPHILS % 0.3 % (0.0-5.0); HEMATOCRIT. 27.8 % (36.0-48.0); HEMOGLOBIN. 9.2 g/dL (12.0-16.0); LYMPHOCYTES % 15.3 % (20.0-50.0); MEAN CORPUSCULAR HEMOGLOBIN 31.6 pg (28.0-32.0); MEAN CORPUSCULAR VOLUME 95.6 fL (81.0-99.0); MEAN PLATELET VOLUME 8.2 fl (7.4-10.4); MONOCYTES % 6.2 % (2.0-8.0); NEUTROPHILS % 77.6 % (40.0-76.0); PLATELET 246 x1000/uL (130-400); RED BLOOD CELL COUNT 2.91 mill/uL (4.2-5.4); RED CELL DISTRIBUTION WIDTH 17.2 % (11.6-14.6)
[2018-11-30] MEDS: HYDRALAZINE HCL 100MG TABLET PO SCH ×3 (06:00→22:00)
[2018-11-30] MEDS: SODIUM CHLORIDE 0.9% INJ 3ML FLUSH IVF SCH ×3 (06:32→20:50)
[2018-11-30] MEDS: SILDENAFIL CITRATE 20MG TABLET PO SCH ×3 (06:38→22:30)
[2018-11-30] MEDS: CLONIDINE 0.3MG TABLET PO SCH ×3 (06:38→22:30)
[2018-11-30] MEDS: NIFEDIPINE XL 60MG TAB PO SCH ×2 (09:11→20:49)
[2018-11-30] MEDS: LOSARTAN POTASSIUM 50 MG TABLET PO SCH ×2 (09:11→20:49)
[2018-11-30] MEDS ORDERED: HYDROMORPHONE HCL/PF 2MG/ML CPJ IV PRN (13:45)
[2018-11-30] MEDS: HYDROCODONE/ACETAMINOPHEN 10/325MG TABLET PO PRN ×2 (14:58→20:49)
[2018-11-30] MEDS: DOCUSATE SODIUM 100MG CAPSULE PO SCH (20:49)
[2018-12-01] VITALS (12 sets, daily range): BP systolic 129–168; BP diastolic 79–101
[2018-12-01] MEDS: HYDROCODONE/ACETAMINOPHEN 10/325MG TABLET PO PRN ×3 (04:44→21:03)
[2018-12-01] MEDS: SILDENAFIL CITRATE 20MG TABLET PO SCH ×3 (06:36→21:45)
[2018-12-01] MEDS: CLONIDINE 0.3MG TABLET PO SCH ×3 (06:36→21:45)
[2018-12-01] MEDS: HYDRALAZINE HCL 100MG TABLET PO SCH ×3 (06:36→21:45)
[2018-12-01] MEDS: SODIUM CHLORIDE 0.9% INJ 3ML FLUSH IVF SCH ×3 (06:37→21:49)
[2018-12-01 06:58] LABS: BASOPHILS % 0.5 % (0.0-2.0); EOSINOPHILS % 1.8 % (0.0-5.0); HEMATOCRIT. 28.2 % (36.0-48.0); HEMOGLOBIN. 9.2 g/dL (12.0-16.0); LYMPHOCYTES % 25.8 % (20.0-50.0); MEAN CORPUSCULAR HEMOGLOBIN 30.9 pg (28.0-32.0); MEAN CORPUSCULAR VOLUME 94.8 fL (81.0-99.0); MEAN PLATELET VOLUME 8.1 fl (7.4-10.4); MONOCYTES % 7.3 % (2.0-8.0); NEUTROPHILS % 64.6 % (40.0-76.0); PLATELET 270 x1000/uL (130-400); RED BLOOD CELL COUNT 2.98 mill/uL (4.2-5.4)
[2018-12-01] MEDS: DOCUSATE SODIUM 100MG CAPSULE PO SCH ×2 (08:45→17:47)
[2018-12-01] MEDS: LOSARTAN POTASSIUM 50 MG TABLET PO SCH ×2 (08:46→21:00)
[2018-12-01] MEDS: NIFEDIPINE XL 60MG TAB PO SCH ×2 (08:46→21:00)
[2018-12-01 17:13] LABS: BG BASE EXCESS 0.1 mmol/L (-2.0-2.0); BG CARBOXYHEMOGLOBIN 0.7 % (0.5-1.5); BG DEOXYHEMOGLOBIN 8.1 % (0.0-5.0); BG FRACTION INSPIRED OXYGEN 21; BG HCO3 ACT 23.3 mmol/L (22.0-26.0); BG METHEMOGLOBIN 0.2 % (0.0-1.5); BG OXYGEN SATURATION 91.8 % (92.0-98.5); BG PCO2 32.8 mmHg (35.0-45.0); BG PH 7.469 (7.350-7.450); BG PO2 64.2 mmHg (75.0-100.0); BG SAMPLE SITE RIGHT BRACHIAL; BG TOTAL HEMOGLOBIN 10.9 g/dL (12.0-18.0); BG VENT MODE ROOM AIR
[2018-12-01] MEDS: CLONIDINE 0.1MG TABLET PO PRN (17:48)
[2018-12-01] MEDS ORDERED: EPOETIN ALFA 10000UNITS/ML VIAL SUBCUT NR (21:00)
[2018-12-02] VITALS (13 sets, daily range): BP systolic 124–182; BP diastolic 74–109
[2018-12-02] MEDS: CLONIDINE 0.1MG TABLET PO PRN (02:12)
[2018-12-02] MEDS: HYDRALAZINE 20MG/ML VIAL IV PRN (04:25)
[2018-12-02] MEDS: SODIUM CHLORIDE 0.9% INJ 3ML FLUSH IVF SCH ×2 (05:13→14:10)
[2018-12-02] MEDS: HYDRALAZINE HCL 100MG TABLET PO SCH ×2 (05:13→14:09)
[2018-12-02] MEDS: CLONIDINE 0.3MG TABLET PO SCH ×2 (05:13→14:09)
[2018-12-02] MEDS: SILDENAFIL CITRATE 20MG TABLET PO SCH ×2 (05:14→14:09)
[2018-12-02 07:14] LABS: BASOPHILS % 0.6 % (0.0-2.0); EOSINOPHILS % 1.9 % (0.0-5.0); HEMATOCRIT. 29.3 % (36.0-48.0); HEMOGLOBIN. 9.5 g/dL (12.0-16.0); LYMPHOCYTES % 24.1 % (20.0-50.0); MEAN CORPUSCULAR HEMOGLOBIN 30.7 pg (28.0-32.0); MEAN CORPUSCULAR VOLUME 94.4 fL (81.0-99.0); MEAN PLATELET VOLUME 8.4 fl (7.4-10.4); MONOCYTES % 7.1 % (2.0-8.0); NEUTROPHILS % 66.3 % (40.0-76.0); PLATELET 321 x1000/uL (130-400)
[2018-12-02] MEDS: LOSARTAN POTASSIUM 50 MG TABLET PO SCH (09:14)
[2018-12-02] MEDS: DOCUSATE SODIUM 100MG CAPSULE PO SCH ×2 (09:15→17:00)
[2018-12-02] MEDS: NIFEDIPINE XL 60MG TAB PO SCH (09:15)
[2018-12-02] MEDS ORDERED: LABETALOL HCL 200MG TABLET PO SCH (11:00)
== END 2018-12-02 19:15 | disposition home health service (06) | DRG 270 ==
LOC: ER 10:15 → 5EST 12:54 → EDBEDREQ 12:56 → ENRESERV 15:38 → UNDODISIN 11-25 20:15 → CVICU 11-28 09:57 → 3WST 11-30 19:54
PROVIDERS: ADMIT Internal Medicine Nephrology; ATTEND Internal Medicine Nephrology
PROC: 5A09457 Assistance with Respiratory Ventilation, 24-96 Consecutive Hours, Continuous Positive Airway Pressure (ICD-10-PCS; 2018-11-24)
PROC: 5A1D70Z Performance of Urinary Filtration, Intermittent, Less than 6 Hours Per Day (ICD-10-PCS; 2018-11-25)
PROC: 5A1D70Z Performance of Urinary Filtration, Intermittent, Less than 6 Hours Per Day (ICD-10-PCS; 2018-11-27)
PROC: 0W9D00Z Drainage of Pericardial Cavity with Drainage Device, Open Approach (ICD-10-PCS; principal; 2018-11-28)
PROC: B24BZZ4 Ultrasonography of Heart with Aorta, Transesophageal (ICD-10-PCS; 2018-11-28)
PROC: 5A1D70Z Performance of Urinary Filtration, Intermittent, Less than 6 Hours Per Day (ICD-10-PCS; 2018-11-29)
PROC: 5A1D70Z Performance of Urinary Filtration, Intermittent, Less than 6 Hours Per Day (ICD-10-PCS; 2018-12-01)
DX: I13.2 Hypertensive heart and chronic kidney disease with heart failure and with stage 5 chronic kidney disease, or end stage renal disease (principal); J96.01 Acute respiratory failure with hypoxia; N18.6 End stage renal disease; I50.43 Acute on chronic combined systolic (congestive) and diastolic (congestive) heart failure; I31.3 Pericardial effusion (noninflammatory); J90 Pleural effusion, not elsewhere classified; I42.9 Cardiomyopathy, unspecified; D63.1 Anemia in chronic kidney disease; I27.20 Pulmonary hypertension, unspecified; E87.5 Hyperkalemia; D72.829 Elevated white blood cell count, unspecified; E78.5 Hyperlipidemia, unspecified; E83.39 Other disorders of phosphorus metabolism; I08.3 Combined rheumatic disorders of mitral, aortic and tricuspid valves; J44.9 Chronic obstructive pulmonary disease, unspecified; Z82.49 Family history of ischemic heart disease and other diseases of the circulatory system; Z87.891 Personal history of nicotine dependence; Z99.2 Dependence on renal dialysis; Z88.5 Allergy status to narcotic agent; Z79.899 Other long term (current) drug therapy
CPT/HCPCS: 36415; 36600; 71045; 71250; 80048; 80061; 82375; 82550; 82553; 82805; 83615; 83735; 83880; 84443; 84484; 85379; 86850; 86900; 87070; 87075; 87102; 87116; 88108; 88305; 88312; 90686; 92610; 93005; 93306; 94660; 96374; 97116; 97162; 97165; 99291; A6261; C1751; C1893; J0171; J0360; J0885; J1100; J1170; J1200; J2250; J2270; J2405; J2704; J2710; J3010; J3490; J7050; J7620; L3908

== ENCOUNTER 2021-07-27 07:15 | Emergency (ER) | payer MEDICARE, MEDICAID ==
[~2021-07-27] VITALS: Ht 167.6 cm; Wt 72.6 kg
[~2021-07-27 07:15] MED LIST changes: +CLON0.2T MT; +CRES10 PO; +LABE100T5 MT; +LOSA50TA41 PO; +NIFE-32 PO; -NIFE60TA64 PO; +NIFE90TA43 PO; -OMEP20CA10 PO; +OMEP20CA14 PO; -ROSU10TA PO
[2021-07-27] MEDS ORDERED: OXYMETAZOLINE HCL NASAL SPRAY 15ML BOTHNSTRLS STA (08:15)
[2021-07-27 09:39] LABS: INR 1.4; PROTHROMBIN TIME 14.4 sec (9.6-11.0)
[2021-07-27 09:40] LABS: BASOPHILS % 1.3 % (0.0-2.0); EOSINOPHILS % 2.9 % (0.0-5.0); HEMATOCRIT. 30.3 % (36.0-48.0); HEMOGLOBIN. 9.8 g/dL (12.0-16.0); LYMPHOCYTES % 10.9 % (20.0-50.0); MEAN CORPUSCULAR HEMOGLOBIN 30.3 pg (28.0-32.0); MEAN CORPUSCULAR VOLUME 93.5 fL (81.0-99.0); MEAN PLATELET VOLUME 8.1 fl (7.4-10.4); MONOCYTES % 6.2 % (2.0-8.0); NEUTROPHILS % 78.7 % (40.0-76.0); PLATELET 428 x1000/uL (130-400); RED BLOOD CELL COUNT 3.24 mill/uL (4.2-5.4); RED CELL DISTRIBUTION WIDTH 19.3 % (11.6-14.6)
[2021-07-27 09:51] LABS: CHLORIDE 99 mEq/L (98-107)
[2021-07-27] MEDS ORDERED: TRANEXAMIC ACID 1,000 MG/10 ML IV ONE (10:45)
[2021-07-27] MEDS ORDERED: LORAZEPAM 2MG/ML CPJ IV ONE (13:15)
[2021-07-27 16:48] VITALS: BP 131/82
== END 2021-07-27 17:33 | disposition short-term general hospital (02) ==
LOC: ER 07:15
DX: R04.0 Epistaxis (principal); I13.11 Hypertensive heart and chronic kidney disease without heart failure, with stage 5 chronic kidney disease, or end stage renal disease; N18.6 End stage renal disease; Z79.01 Long term (current) use of anticoagulants; Z99.2 Dependence on renal dialysis; Z79.899 Other long term (current) drug therapy
CPT/HCPCS: 30901; 36415; 80053; 85025; 85610; 93005; 96374; 96375; 99285; J2060

== ENCOUNTER 2021-09-10 14:52 | Emergency (ER) | payer MEDICARE, MEDICAID ==
[~2021-09-10] VITALS: Ht 165.1 cm; Wt 65.0 kg
[2021-09-10 14:54] VITALS: BP 253/133
[2021-09-10] MEDS ORDERED: LABETALOL HCL 100MG TABLET PO ONE (15:15)
[2021-09-10] MEDS ORDERED: HYDRALAZINE HCL 25MG TABLET PO ONE (15:15)
== END 2021-09-10 16:45 | disposition home or self-care (01) ==
LOC: ER 14:52
DX: I10 Essential (primary) hypertension (principal); Z99.2 Dependence on renal dialysis; N18.6 End stage renal disease; Z79.899 Other long term (current) drug therapy
CPT/HCPCS: 99283

== ENCOUNTER 2022-02-18 22:43 | Inpatient (IN) | payer MEDICARE, MEDICAID ==
[~2022-02-18] VITALS: Ht 165.1 cm; Wt 65.9 kg
[2022-02-18] MEDS ORDERED: ONDANSETRON HCL 4MG/2ML INJ IV STA (23:25)
[2022-02-18] MEDS ORDERED: MORPHINE SULFATE 4 MG/ML CPJ (NOT FOR IM USE) IV STA (23:25)
[2022-02-18] MEDS ORDERED: FAMOTIDINE 20MG/2ML VIAL IV STA (23:25)
[2022-02-18 23:49] LABS: BASOPHILS % 0.4 % (0.0-2.0); EOSINOPHILS % 2.7 % (0.0-5.0); HEMATOCRIT. 30.4 % (36.0-48.0); HEMOGLOBIN. 9.5 g/dL (12.0-16.0); LYMPHOCYTES % 12.3 % (20.0-50.0); MEAN CORPUSCULAR HEMOGLOBIN 29.2 pg (28.0-32.0); MEAN CORPUSCULAR VOLUME 93.1 fL (81.0-99.0); MEAN PLATELET VOLUME 9.6 fl (7.4-10.4); MONOCYTES % 6.7 % (2.0-8.0); NEUTROPHILS % 77.9 % (40.0-76.0); PLATELET 108 x1000/uL (130-400); RED BLOOD CELL COUNT 3.26 mill/uL (4.2-5.4); RED CELL DISTRIBUTION WIDTH 21.2 % (11.6-14.6)
[2022-02-18 23:58] LABS: CHLORIDE 103 mEq/L (98-107)
[2022-02-19] VITALS (44 sets, daily range): BP systolic 110–173; BP diastolic 25–100
[2022-02-19] MEDS ORDERED: ALBUTEROL (0.083%) 2.5MG/3ML NEB HHN NR (01:00)
[2022-02-19] MEDS ORDERED: DEXTROSE 50% WATER 50ML SYRINGE IV NR (01:00)
[2022-02-19] MEDS ORDERED: CALCIUM CHLORIDE 1GM/10ML SYR IV NR (01:00)
[2022-02-19] MEDS ORDERED: SODIUM BICARBONATE 8.4% 1 MEQ/ML 50ML SYR IV NR (01:00)
[2022-02-19] MEDS ORDERED: INSULIN REGULAR (HUMULIN R) 300UNITS/3ML VIAL IV NR (01:00)
[2022-02-19] MEDS ORDERED: LORAZEPAM 2MG/ML CPJ IV PRN (08:00)
[2022-02-19] MEDS ORDERED: ONDANSETRON HCL 4MG/2ML INJ IV PRN (08:00)
[2022-02-19] MEDS ORDERED: IPRATROPIUM/ALBUTEROL 0.5-3(2.5)MG/3ML NEB NEB PRN (08:00)
[2022-02-19] MEDS ORDERED: MAGNESIUM/ALUMINUM HYDROXIDE/SIMETHICONE 30ML UDC PO PRN ×2 (08:00→10:00)
[2022-02-19] MEDS ORDERED: ACETAMINOPHEN 650MG/20.3ML UDC GT PRN (08:00)
[2022-02-19 09:04] LABS: BASOPHILS % 0.4 % (0.0-2.0); EOSINOPHILS % 2.6 % (0.0-5.0); HEMATOCRIT. 25.5 % (36.0-48.0); LYMPHOCYTES % 15.8 % (20.0-50.0); MEAN CORPUSCULAR HEMOGLOBIN 28.9 pg (28.0-32.0); MEAN CORPUSCULAR VOLUME 92.2 fL (81.0-99.0); MEAN PLATELET VOLUME 9.5 fl (7.4-10.4); MONOCYTES % 10.7 % (2.0-8.0); NEUTROPHILS % 70.5 % (40.0-76.0); PLATELET 105 x1000/uL (130-400); RED BLOOD CELL COUNT 2.77 mill/uL (4.2-5.4); RED CELL DISTRIBUTION WIDTH 20.7 % (11.6-14.6)
[2022-02-19 09:05] LABS: CHLORIDE 103 mEq/L (98-107)
[2022-02-19] MEDS ORDERED: DOCUSATE SODIUM 100MG CAPSULE PO PRN (10:00)
[2022-02-19] MEDS ORDERED: CLONIDINE 0.1MG TABLET PO PRN (10:00)
[2022-02-19] MEDS ORDERED: ACETAMINOPHEN 325MG TABLET PO PRN (10:00)
[2022-02-19 10:27] LABS: TOTAL IRON BINDING CAPACITY 218 ug/dL (250-450)
[2022-02-19 12:08] LABS: CHLORIDE 102 mEq/L (98-107)
[2022-02-19] MEDS ORDERED: NALOXONE HCL 0.4MG/ML VIAL IV PRN (13:00)
[2022-02-19] MEDS: ENOXAPARIN 30MG/0.3ML SYR SUBCUT SCH (13:02)
[2022-02-19] MEDS: AMLODIPINE 10MG TABLET PO SCH (13:03)
[2022-02-19] MEDS: HYDRALAZINE HCL 25MG TABLET PO SCH ×2 (13:03→17:00)
[2022-02-19] MEDS: METOPROLOL TARTRATE 25MG TABLET PO SCH ×2 (13:14→21:00)
[2022-02-19 13:41] LABS: HEPATITIS B SURFACE ANTIGEN NEGATIVE
[2022-02-19 13:49] LABS: BG BASE EXCESS -2.2 mmol/L (-2.0-2.0); BG CARBOXYHEMOGLOBIN 1.7 % (0.5-1.5); BG DEOXYHEMOGLOBIN 12.4 % (0.0-5.0); BG FRACTION INSPIRED OXYGEN 32; BG HCO3 ACT 23.8 mmol/L (22.0-26.0); BG METHEMOGLOBIN 0.2 % (0.0-1.5); BG OXYGEN SATURATION 87.4 % (92.0-98.5); BG OXYHEMOGLOBIN 85.7 % (94.0-97.0); BG PCO2 46.7 mmHg (35.0-45.0); BG PH 7.325 (7.350-7.450); BG PO2 60.3 mmHg (75.0-100.0); BG SAMPLE SITE LEFT RADIAL; BG TOTAL HEMOGLOBIN 8.4 g/dL (12.0-18.0); BG VENT MODE NASAL CANNULA
[2022-02-19] MEDS: CALCITRIOL 0.25MCG CAPSULE PO SCH ×2 (16:57→16:59)
[2022-02-19] MEDS: CALCIUM ACETATE 667MG CAPSULE PO SCH ×2 (16:57→16:58)
[2022-02-19] MEDS: CLONIDINE 0.2MG TABLET PO SCH (16:58)
[2022-02-19] MEDS: SILDENAFIL CITRATE 20MG TABLET PO SCH (16:58)
[2022-02-19] MEDS: MORPHINE SULFATE 2 MG/ML CPJ (NOT FOR IM USE) IV PRN (19:45)
[2022-02-20] VITALS (63 sets, daily range): BP systolic 111–183; BP diastolic 35–111
[2022-02-20] MEDS: HYDROCODONE/ACETAMINOPHEN 5/325MG TABLET PO PRN (00:55)
[2022-02-20 06:14] LABS: BASOPHILS % 0.5 % (0.0-2.0); EOSINOPHILS % 3.1 % (0.0-5.0); HEMATOCRIT. 24.4 % (36.0-48.0); HEMOGLOBIN. 7.9 g/dL (12.0-16.0); LYMPHOCYTES % 19.3 % (20.0-50.0); MEAN CORPUSCULAR HEMOGLOBIN 30.2 pg (28.0-32.0); MEAN CORPUSCULAR VOLUME 92.7 fL (81.0-99.0); MEAN PLATELET VOLUME 10.3 fl (7.4-10.4); MONOCYTES % 11.1 % (2.0-8.0); PLATELET 115 x1000/uL (130-400); RED BLOOD CELL COUNT 2.63 mill/uL (4.2-5.4); RED CELL DISTRIBUTION WIDTH 20.3 % (11.6-14.6)
[2022-02-20 07:05] LABS: PHOSPHORUS 7.1 mg/dL (2.5-4.9); T4 FREE 0.91 ng/dL (0.76-1.46)
[2022-02-20] MEDS: CALCIUM ACETATE 667MG CAPSULE PO SCH ×3 (08:45→18:25)
[2022-02-20] MEDS: CALCITRIOL 0.25MCG CAPSULE PO SCH ×2 (08:45→14:27)
[2022-02-20] MEDS: PANTOPRAZOLE SODIUM 40 MG/VIAL IV SCH (08:45)
[2022-02-20] MEDS: FOLIC ACID/VITAMIN B COMP W-C TABLET PO SCH (08:46)
[2022-02-20] MEDS: METOPROLOL TARTRATE 25MG TABLET PO SCH ×2 (08:46→21:39)
[2022-02-20] MEDS: SILDENAFIL CITRATE 20MG TABLET PO SCH ×3 (08:46→22:00)
[2022-02-20] MEDS: CLONIDINE 0.2MG TABLET PO SCH ×2 (08:46→17:00)
[2022-02-20] MEDS: HYDRALAZINE HCL 25MG TABLET PO SCH ×3 (08:47→21:39)
[2022-02-20] MEDS: ENOXAPARIN 30MG/0.3ML SYR SUBCUT SCH (08:48)
[2022-02-20] MEDS: AMLODIPINE 10MG TABLET PO SCH (08:48)
[2022-02-20] MEDS: LOSARTAN POTASSIUM 100 MG TABLET PO SCH (11:54)
[2022-02-20] MEDS: HYDRALAZINE 20MG/ML VIAL IV PRN (11:55)
[2022-02-20] MEDS ORDERED: DIPHENHYDRAMINE 50MG/ML VIAL IV PRN (14:30)
[2022-02-20] MEDS ORDERED: SODIUM POLYSTYRENE SULFONATE 15 G/60 ML BOT PO NR (16:30)
[2022-02-20] MEDS: MORPHINE SULFATE 2 MG/ML CPJ (NOT FOR IM USE) IV PRN (21:40)
[2022-02-21] VITALS: BP 181/93
[2022-02-21] MEDS: HYDRALAZINE 20MG/ML VIAL IV PRN (00:12)
[2022-02-21] MEDS: MORPHINE SULFATE 2 MG/ML CPJ (NOT FOR IM USE) IV PRN (01:59)
[2022-02-21 04:00] VITALS: BP 101/56
[2022-02-21] MEDS: SILDENAFIL CITRATE 20MG TABLET PO SCH ×3 (06:00→13:47)
[2022-02-21] MEDS: HYDROCODONE/ACETAMINOPHEN 5/325MG TABLET PO PRN (06:11)
[2022-02-21] MEDS: HYDRALAZINE HCL 25MG TABLET PO SCH ×2 (06:11→13:47)
[2022-02-21 08:00] VITALS: BP 140/62
[2022-02-21] MEDS: CALCITRIOL 0.25MCG CAPSULE PO SCH ×2 (09:00→13:00)
[2022-02-21] MEDS: PANTOPRAZOLE SODIUM 40 MG/VIAL IV SCH (09:00)
[2022-02-21] MEDS: CALCIUM ACETATE 667MG CAPSULE PO SCH ×2 (09:00→13:00)
[2022-02-21] MEDS: ENOXAPARIN 30MG/0.3ML SYR SUBCUT SCH (09:00)
[2022-02-21] MEDS: FOLIC ACID/VITAMIN B COMP W-C TABLET PO SCH (09:00)
[2022-02-21] MEDS: AMLODIPINE 10MG TABLET PO SCH (09:00)
[2022-02-21] MEDS: METOPROLOL TARTRATE 25MG TABLET PO SCH (09:00)
[2022-02-21] MEDS: CLONIDINE 0.2MG TABLET PO SCH (09:00)
[2022-02-21] MEDS: LOSARTAN POTASSIUM 100 MG TABLET PO SCH (09:53)
[2022-02-21 16:00] VITALS: BP 152/90
== END 2022-02-21 18:00 | disposition left against medical advice (07) | DRG 91 ==
LOC: ER 22:43 → MICUNO 02-19 02:27 → MICUSO 02-19 12:15 → 7WST 02-20 17:33
PROVIDERS: ADMIT Internal Medicine Nephrology; ATTEND Internal Medicine Nephrology
PROC: 5A1D70Z Performance of Urinary Filtration, Intermittent, Less than 6 Hours Per Day (ICD-10-PCS; principal; 2022-02-19)
PROC: 5A1D70Z Performance of Urinary Filtration, Intermittent, Less than 6 Hours Per Day (ICD-10-PCS; 2022-02-21)
PROC: 5A09357 Assistance with Respiratory Ventilation, Less than 24 Consecutive Hours, Continuous Positive Airway Pressure (ICD-10-PCS; 2022-02-21)
DX: G92.8 Other toxic encephalopathy (principal); N18.6 End stage renal disease; I12.0 Hypertensive chronic kidney disease with stage 5 chronic kidney disease or end stage renal disease; R18.8 Other ascites; E87.2 Acidosis; J90 Pleural effusion, not elsewhere classified; E87.70 Fluid overload, unspecified; E87.5 Hyperkalemia; R16.0 Hepatomegaly, not elsewhere classified; R74.01 Elevation of levels of liver transaminase levels; G47.33 Obstructive sleep apnea (adult) (pediatric); R10.9 Unspecified abdominal pain; I27.20 Pulmonary hypertension, unspecified; R00.1 Bradycardia, unspecified; D64.9 Anemia, unspecified; E61.1 Iron deficiency; Z99.2 Dependence on renal dialysis; Z88.5 Allergy status to narcotic agent; Z79.899 Other long term (current) drug therapy
CPT/HCPCS: 36415; 36600; 71045; 74176; 80048; 80053; 80061; 80076; 82140; 82375; 82805; 83540; 83550; 83605; 83735; 84100; 84439; 84443; 84484; 85025; 85027; 86705; 86709; 86803; 87340; 93005; 93970; 94640; 94660; 99291; C9113; J0360; J1650; J1815; J2270; J2405; J3490

== ENCOUNTER 2022-03-15 23:39 | Emergency (ER) | payer MEDICARE, MEDICAID ==
[~2022-03-15] VITALS: Ht 165.1 cm; Wt 66.0 kg
[2022-03-15 23:44] VITALS: BP 206/103
[2022-03-16] MEDS ORDERED: CLONIDINE 0.3MG TABLET PO ONE (01:15)
[2022-03-16] MEDS ORDERED: ASPIRIN 81MG TABLET PO ONE (01:15)
[2022-03-16 01:32] LABS: BASOPHILS % 0.8 % (0.0-2.0); HEMATOCRIT. 33.5 % (36.0-48.0); HEMOGLOBIN. 10.6 g/dL (12.0-16.0); LYMPHOCYTES % 15.2 % (20.0-50.0); MEAN CORPUSCULAR HEMOGLOBIN 30.3 pg (28.0-32.0); MEAN CORPUSCULAR VOLUME 95.9 fL (81.0-99.0); MEAN PLATELET VOLUME 8.8 fl (7.4-10.4); PLATELET 224 x1000/uL (130-400); RED CELL DISTRIBUTION WIDTH 22.4 % (11.6-14.6)
[2022-03-16 01:43] LABS: CHLORIDE 99 mEq/L (98-107); INR 1.5; PARTIAL THROMBOPLASTIN TIME 34.6 sec (23.4-31.0); PROTHROMBIN TIME 15.6 sec (9.6-11.0)
[2022-03-16] MEDS ORDERED: FUROSEMIDE 40MG TABLET PO NR (03:00)
[2022-03-16 04:25] LABS: PLATELET ESTIMATE NORMAL
== END 2022-03-16 03:10 | disposition home or self-care (01) ==
LOC: ER 23:39
DX: R60.9 Edema, unspecified (principal); N18.6 End stage renal disease; I13.2 Hypertensive heart and chronic kidney disease with heart failure and with stage 5 chronic kidney disease, or end stage renal disease; Z99.2 Dependence on renal dialysis; Z79.899 Other long term (current) drug therapy
CPT/HCPCS: 36415; 71045; 80053; 83880; 84484; 85025; 93005; 93970; 99285

== ENCOUNTER 2022-03-18 18:59 | Emergency (ER) | payer MEDICARE, MEDICAID ==
[~2022-03-18] VITALS: Ht 165.1 cm; Wt 66.0 kg
[2022-03-19 01:00] VITALS: BP 176/98
== END 2022-03-19 01:15 | disposition home or self-care (01) ==
LOC: ER 19:16
DX: R60.0 Localized edema (principal); I12.0 Hypertensive chronic kidney disease with stage 5 chronic kidney disease or end stage renal disease; N18.6 End stage renal disease; L30.9 Dermatitis, unspecified; Z99.2 Dependence on renal dialysis
CPT/HCPCS: 99281

== ENCOUNTER 2022-04-19 14:40 | Inpatient (IN) | payer MEDICARE, MEDICAID ==
[~2022-04-19] VITALS: Ht 165.1 cm; Wt 68.9 kg
[2022-04-19] MEDS ORDERED: NITROGLYCERIN 0.4MG TABLET SL SL PRN (15:00)
[2022-04-19] MEDS ORDERED: ASPIRIN 81MG TABLET PO ONE (15:00)
[2022-04-19] MEDS ORDERED: HYDROMORPHONE HCL/PF 2MG/ML CPJ IV ONE (16:00)
[2022-04-19] MEDS ORDERED: MORPHINE SULFATE 4 MG/ML CPJ (NOT FOR IM USE) IV ONE (16:00)
[2022-04-19 17:48] LABS: CHLORIDE 89 mEq/L (98-107)
[2022-04-19 17:56] LABS: HEMATOCRIT. 31.3 % (36.0-48.0); HEMOGLOBIN. 10.1 g/dL (12.0-16.0); MEAN CORPUSCULAR HEMOGLOBIN 29.3 pg (28.0-32.0); MEAN CORPUSCULAR VOLUME 90.6 fL (81.0-99.0); PLATELET 200 x1000/uL (130-400); RED BLOOD CELL COUNT 3.46 mill/uL (4.2-5.4); RED CELL DISTRIBUTION WIDTH 20.4 % (11.6-14.6)
[2022-04-19 18:15] LABS: PLATELET ESTIMATE NORMAL
[2022-04-19] MEDS ORDERED: CEFTRIAXONE 1 G PREMIX 50 ML IV ONE (19:45)
[2022-04-19] MEDS ORDERED: AZITHROMYCIN 500MG/250ML 250 ML IV ONE (19:45)
[2022-04-19] MEDS ORDERED: IPRATROPIUM/ALBUTEROL 0.5-3(2.5)MG/3ML NEB HHN PRN (20:30)
[2022-04-19] MEDS ORDERED: ACETAMINOPHEN 325MG TABLET PO PRN (20:30)
[2022-04-19] MEDS ORDERED: MAGNESIUM/ALUMINUM HYDROXIDE/SIMETHICONE 30ML UDC PO PRN (20:30)
[2022-04-19] MEDS ORDERED: DOCUSATE SODIUM 100MG CAPSULE PO PRN (20:30)
[2022-04-19] MEDS ORDERED: ENOXAPARIN 40MG/0.4ML SYR SUBCUT SCH (20:30)
[2022-04-19] MEDS ORDERED: HYDRALAZINE 20MG/ML VIAL IV PRN (20:30)
[2022-04-19] MEDS ORDERED: GUAIFENESIN 200MG/10ML SUGAR FREE UDC PO PRN (20:30)
[2022-04-19] MEDS ORDERED: DIPHENHYDRAMINE 50MG/ML VIAL IV PRN (20:30)
[2022-04-19] MEDS ORDERED: ONDANSETRON HCL 4MG/2ML INJ IV PRN (20:30)
[2022-04-19] MEDS ORDERED: NALOXONE HCL 0.4MG/ML VIAL IV PRN (20:30)
[2022-04-19] MEDS: SODIUM CHLORIDE 0.9% INJ 3ML FLUSH IVF SCH (22:00)
[2022-04-19] MEDS: ENOXAPARIN 30MG/0.3ML SYR SUBCUT SCH (23:00)
[2022-04-19] MEDS ORDERED: AZITHROMYCIN 500MG/250ML 250 ML IV NR (23:30)
[2022-04-19] MEDS ORDERED: CEFTRIAXONE 1 G PREMIX 50 ML IV NR (23:30)
[2022-04-20] MEDS: HYDROCODONE/ACETAMINOPHEN 5/325MG TABLET PO PRN ×2 (00:07→04:49)
[2022-04-20 01:05] VITALS: BP 130/77
[2022-04-20] MEDS: MORPHINE SULFATE 2 MG/ML CPJ (NOT FOR IM USE) IV PRN ×2 (02:58→11:17)
[2022-04-20] MEDS: CLONIDINE 0.1MG TABLET PO PRN (04:50)
[2022-04-20 07:28] LABS: BASOPHILS % 0.3 % (0.0-2.0); EOSINOPHILS % 0.3 % (0.0-5.0); HEMATOCRIT. 32.2 % (36.0-48.0); HEMOGLOBIN. 10.6 g/dL (12.0-16.0); LYMPHOCYTES % 8.1 % (20.0-50.0); MEAN CORPUSCULAR HEMOGLOBIN 29.6 pg (28.0-32.0); MEAN CORPUSCULAR VOLUME 90.1 fL (81.0-99.0); MEAN PLATELET VOLUME 9.4 fl (7.4-10.4); MONOCYTES % 6.8 % (2.0-8.0); NEUTROPHILS % 84.5 % (40.0-76.0); PLATELET 175 x1000/uL (130-400); RED BLOOD CELL COUNT 3.57 mill/uL (4.2-5.4)
[2022-04-20 07:42] LABS: CHLORIDE 88 mEq/L (98-107)
[2022-04-20 08:00] VITALS: BP 166/87
[2022-04-20 12:00] VITALS: BP 175/87
[2022-04-20] MEDS: SODIUM CHLORIDE 0.9% INJ 3ML FLUSH IVF SCH ×2 (14:00→21:42)
[2022-04-20 16:00] VITALS: BP 158/82
[2022-04-20] MEDS: SILDENAFIL CITRATE 20MG TABLET PO SCH ×2 (16:15→21:41)
[2022-04-20] MEDS: HYDROMORPHONE HCL/PF 2MG/ML CPJ IV PRN ×2 (16:53→23:22)
[2022-04-20 20:00] VITALS: BP 127/70
[2022-04-20] MEDS: ENOXAPARIN 30MG/0.3ML SYR SUBCUT SCH (21:41)
[2022-04-21] VITALS: BP 143/80
[2022-04-21 04:00] VITALS: BP 150/69
[2022-04-21] MEDS: SODIUM CHLORIDE 0.9% INJ 3ML FLUSH IVF SCH ×3 (06:09→21:37)
[2022-04-21] MEDS: HYDROMORPHONE HCL/PF 2MG/ML CPJ IV PRN ×3 (06:09→18:02)
[2022-04-21] MEDS: SILDENAFIL CITRATE 20MG TABLET PO SCH ×3 (06:09→21:37)
[2022-04-21 08:00] VITALS: BP 149/71
[2022-04-21 08:24] LABS: BASOPHILS % 0.3 % (0.0-2.0); EOSINOPHILS % 0.8 % (0.0-5.0); HEMATOCRIT. 32.6 % (36.0-48.0); HEMOGLOBIN. 10.4 g/dL (12.0-16.0); LYMPHOCYTES % 9.7 % (20.0-50.0); MEAN CORPUSCULAR HEMOGLOBIN 28.9 pg (28.0-32.0); MEAN CORPUSCULAR VOLUME 90.8 fL (81.0-99.0); MEAN PLATELET VOLUME 9.8 fl (7.4-10.4); MONOCYTES % 7.2 % (2.0-8.0); PLATELET 186 x1000/uL (130-400); RED BLOOD CELL COUNT 3.59 mill/uL (4.2-5.4)
[2022-04-21 12:00] VITALS: BP 151/82
[2022-04-21] MEDS ORDERED: SODIUM CHLORIDE 45ML SPRAY NS PRN (14:00)
[2022-04-21 14:50] LABS: HEPATITIS B SURFACE ANTIGEN NEGATIVE
[2022-04-21 16:00] VITALS: BP 149/77
[2022-04-21 20:00] VITALS: BP 157/90
[2022-04-21] MEDS: ENOXAPARIN 30MG/0.3ML SYR SUBCUT SCH (21:37)
[2022-04-22] VITALS: BP 152/81
[2022-04-22] MEDS: HYDROMORPHONE HCL/PF 2MG/ML CPJ IV PRN ×4 (00:25→18:14)
[2022-04-22 04:00] VITALS: BP 150/88
[2022-04-22] MEDS: SILDENAFIL CITRATE 20MG TABLET PO SCH ×3 (05:28→22:40)
[2022-04-22] MEDS: SODIUM CHLORIDE 0.9% INJ 3ML FLUSH IVF SCH ×3 (05:28→22:39)
[2022-04-22 08:28] LABS: BASOPHILS % 0.3 % (0.0-2.0); EOSINOPHILS % 0.8 % (0.0-5.0); HEMATOCRIT. 30.5 % (36.0-48.0); HEMOGLOBIN. 9.7 g/dL (12.0-16.0); LYMPHOCYTES % 7.1 % (20.0-50.0); MEAN CORPUSCULAR HEMOGLOBIN 28.9 pg (28.0-32.0); MEAN CORPUSCULAR VOLUME 91.3 fL (81.0-99.0); MEAN PLATELET VOLUME 9.7 fl (7.4-10.4); MONOCYTES % 7.7 % (2.0-8.0); NEUTROPHILS % 84.1 % (40.0-76.0); PLATELET 203 x1000/uL (130-400); RED BLOOD CELL COUNT 3.34 mill/uL (4.2-5.4); RED CELL DISTRIBUTION WIDTH 19.8 % (11.6-14.6)
[2022-04-22 08:30] VITALS: BP 150/81
[2022-04-22 12:30] VITALS: BP 138/81
[2022-04-22 15:48] VITALS: BP 152/87
[2022-04-22 20:00] VITALS: BP 171/79
[2022-04-22] MEDS: ENOXAPARIN 30MG/0.3ML SYR SUBCUT SCH (21:06)
[2022-04-22] MEDS: CLONIDINE 0.1MG TABLET PO PRN (21:08)
[2022-04-23] VITALS: BP 153/85
[2022-04-23] MEDS: HYDROMORPHONE HCL/PF 2MG/ML CPJ IV PRN (00:50)
[2022-04-23 04:00] VITALS: BP 110/57
[2022-04-23] MEDS: SODIUM CHLORIDE 0.9% INJ 3ML FLUSH IVF SCH (05:58)
[2022-04-23] MEDS: SILDENAFIL CITRATE 20MG TABLET PO SCH (05:59)
[2022-04-23 08:00] VITALS: BP 131/86
[2022-04-23 10:16] LABS: BASOPHILS % 1.1 % (0.0-2.0); EOSINOPHILS % 3.8 % (0.0-5.0); HEMATOCRIT. 29.6 % (36.0-48.0); HEMOGLOBIN. 9.3 g/dL (12.0-16.0); LYMPHOCYTES % 12.2 % (20.0-50.0); MEAN CORPUSCULAR HEMOGLOBIN 28.7 pg (28.0-32.0); MEAN CORPUSCULAR VOLUME 90.9 fL (81.0-99.0); MEAN PLATELET VOLUME 9.1 fl (7.4-10.4); MONOCYTES % 7.8 % (2.0-8.0); NEUTROPHILS % 75.1 % (40.0-76.0); PLATELET 203 x1000/uL (130-400); RED BLOOD CELL COUNT 3.26 mill/uL (4.2-5.4); RED CELL DISTRIBUTION WIDTH 19.5 % (11.6-14.6)
== END 2022-04-23 11:29 | disposition left against medical advice (07) | DRG 193 ==
LOC: ER 14:40 → 6WST 19:13 → ENRESERV 21:55
PROVIDERS: ADMIT Internal Medicine; ATTEND Internal Medicine
PROC: 5A09357 Assistance with Respiratory Ventilation, Less than 24 Consecutive Hours, Continuous Positive Airway Pressure (ICD-10-PCS; principal; 2022-04-19)
PROC: 5A1D70Z Performance of Urinary Filtration, Intermittent, Less than 6 Hours Per Day (ICD-10-PCS; 2022-04-21)
DX: J18.9 Pneumonia, unspecified organism (principal); J96.00 Acute respiratory failure, unspecified whether with hypoxia or hypercapnia; N18.6 End stage renal disease; I12.0 Hypertensive chronic kidney disease with stage 5 chronic kidney disease or end stage renal disease; E87.70 Fluid overload, unspecified; I27.20 Pulmonary hypertension, unspecified; D63.1 Anemia in chronic kidney disease; G47.33 Obstructive sleep apnea (adult) (pediatric); R77.8 Other specified abnormalities of plasma proteins; E87.5 Hyperkalemia; I25.10 Atherosclerotic heart disease of native coronary artery without angina pectoris; Z20.822 Contact with and (suspected) exposure to COVID-19; Z88.8 Allergy status to other drugs, medicaments and biological substances; Z79.899 Other long term (current) drug therapy; Z91.15 Patient's noncompliance with renal dialysis; Z99.2 Dependence on renal dialysis; Z95.2 Presence of prosthetic heart valve
CPT/HCPCS: 36415; 71045; 80048; 80053; 83605; 83880; 84484; 85025; 86705; 86709; 86803; 87340; 87426; 93005; 93970; 94660; 99291; J0456; J0696; J1170; J1650; J2270

== ENCOUNTER 2022-07-29 11:59 | Emergency (ER) | payer MEDICARE, MEDICAID ==
[~2022-07-29] VITALS: Ht 165.1 cm; Wt 65.0 kg
[~2022-07-29 11:59] MED LIST changes: -LABE100T5 MT; -LABE100T5 PO; +LABE100T9 MT; +LABE100T9 PO
[2022-07-29] MEDS ORDERED: MAGNESIUM/ALUMINUM HYDROXIDE/SIMETHICONE 30ML UDC PO STA (12:25)
[2022-07-29] MEDS ORDERED: ONDANSETRON 4MG ODT PO STA (12:25)
[2022-07-29] MEDS ORDERED: VISCOUS LIDOCAINE 2% 15 ML UDC PO STA (12:25)
[2022-07-29] MEDS ORDERED: FAMOTIDINE 20MG TABLET PO ONE (12:30)
[2022-07-29] MEDS ORDERED: LIDOCAINE HCL/EPINEPHRINE 1%-EPI 1:100,000 50 ML VIAL INFIL ONE (13:15)
[2022-07-29] MEDS ORDERED: HYDROCODONE/ACETAMINOPHEN 10/325MG TABLET PO ONE (13:30)
[2022-07-29 13:46] LABS: BASOPHILS % 0.6 % (0.0-2.0); EOSINOPHILS % 1.3 % (0.0-5.0); HEMATOCRIT. 36.5 % (36.0-48.0); HEMOGLOBIN. 11.6 g/dL (12.0-16.0); LYMPHOCYTES % 14.3 % (20.0-50.0); MEAN CORPUSCULAR HEMOGLOBIN 32.2 pg (28.0-32.0); MEAN CORPUSCULAR VOLUME 100.9 fL (81.0-99.0); MEAN PLATELET VOLUME 8.9 fl (7.4-10.4); MONOCYTES % 7.5 % (2.0-8.0); NEUTROPHILS % 76.3 % (40.0-76.0); PLATELET 235 x1000/uL (130-400); RED BLOOD CELL COUNT 3.62 mill/uL (4.2-5.4); RED CELL DISTRIBUTION WIDTH 20.8 % (11.6-14.6)
[2022-07-29 13:49] LABS: CHLORIDE 90 mEq/L (98-107)
[2022-07-29 14:01] LABS: HCG SCREEN NEGATIVE
[2022-07-29] MEDS ORDERED: ACET-2708 MT (14:19)
[2022-07-29 14:27] VITALS: BP 165/90
[2022-07-29] MEDS ORDERED: BACITRACIN ZINC OINT UDPKT TOP ONE (14:45)
== END 2022-07-29 14:53 | disposition home or self-care (01) ==
LOC: ER 11:59
DX: S91.312A Laceration without foreign body, left foot, initial encounter (principal); X58.XXXA Exposure to other specified factors, initial encounter; Y93.89 Activity, other specified; Y92.89 Other specified places as the place of occurrence of the external cause; Y99.8 Other external cause status; Z99.2 Dependence on renal dialysis; Z79.899 Other long term (current) drug therapy; I12.0 Hypertensive chronic kidney disease with stage 5 chronic kidney disease or end stage renal disease; N18.6 End stage renal disease
CPT/HCPCS: 12001; 36415; 80053; 84703; 85025; 99283

== ENCOUNTER 2022-07-30 00:19 | Emergency (ER) | payer MEDICARE, MEDICAID ==
[~2022-07-30] VITALS: Ht 165.1 cm; Wt 66.6 kg
[~2022-07-30 00:19] MED LIST changes: +ACET-2708 MT
[2022-07-30 02:43] VITALS: BP 151/103
[2022-07-30] MEDS ORDERED: HYDROCODONE/ACETAMINOPHEN 5/325MG TABLET PO ONE (02:45)
== END 2022-07-30 03:03 | disposition home or self-care (01) ==
LOC: ER 00:19
DX: S91.012A Laceration without foreign body, left ankle, initial encounter (principal); X58.XXXA Exposure to other specified factors, initial encounter; L85.3 Xerosis cutis; Y93.89 Activity, other specified; Y92.89 Other specified places as the place of occurrence of the external cause; I13.11 Hypertensive heart and chronic kidney disease without heart failure, with stage 5 chronic kidney disease, or end stage renal disease; N18.6 End stage renal disease; Z99.2 Dependence on renal dialysis
CPT/HCPCS: 12001; 99283

== ENCOUNTER 2022-11-11 11:46 | Emergency (ER) | payer MEDICARE, MEDICAID ==
[~2022-11-11] VITALS: Ht 167.6 cm; Wt 75.0 kg
[2022-11-11 11:53] VITALS: BP 155/84
== END 2022-11-11 16:41 | disposition left against medical advice (07) ==
LOC: ER 11:59
DX: Z53.21 Procedure and treatment not carried out due to patient leaving prior to being seen by health care provider (principal)

== ENCOUNTER 2022-11-25 17:07 | Inpatient (IN) | payer MEDICARE, MEDICAID ==
[~2022-11-25] VITALS: Ht 167.6 cm; Wt 67.0 kg
[2022-11-25] MEDS ORDERED: LIDOCAINE HCL/EPINEPHRINE 1%-EPI 1:100,000 20 ML VIAL INFIL ONE (18:00)
[2022-11-25 18:24] LABS: BASOPHILS % 0.4 % (0.0-2.0); EOSINOPHILS % 2.9 % (0.0-5.0); HEMATOCRIT. 34.1 % (36.0-48.0); MEAN CORPUSCULAR HEMOGLOBIN 30.2 pg (28.0-32.0); MEAN CORPUSCULAR VOLUME 93.4 fL (81.0-99.0); MEAN PLATELET VOLUME 9.4 fl (7.4-10.4); MONOCYTES % 8.6 % (2.0-8.0); NEUTROPHILS % 64.1 % (40.0-76.0); PLATELET 258 x1000/uL (130-400); RED BLOOD CELL COUNT 3.65 mill/uL (4.2-5.4); RED CELL DISTRIBUTION WIDTH 20.4 % (11.6-14.6)
[2022-11-25 18:25] LABS: CHLORIDE 90 mEq/L (98-107)
[2022-11-25] MEDS ORDERED: LIDOCAINE HCL 1%/EPI 1:200,000 30 ML VIAL IJ NR (18:45)
[2022-11-25] MEDS ORDERED: LIDOCAINE HCL 1%/EPI 1:200,000 30 ML VIAL MC NR (18:45)
[2022-11-25 19:18] LABS: INR 2.1; PROTHROMBIN TIME 21.6 sec (9.6-11.0)
[2022-11-25] MEDS ORDERED: MORPHINE SULFATE 4 MG/ML CPJ (NOT FOR IM USE) IV ONE (20:15)
[2022-11-25] MEDS ORDERED: ZOLPIDEM TARTRATE 5MG TABLET PO PRN (21:30)
[2022-11-25] MEDS ORDERED: DIPHENHYDRAMINE 50MG/ML VIAL IV PRN (21:30)
[2022-11-25] MEDS ORDERED: GUAIFENESIN 200MG/10ML SUGAR FREE UDC PO PRN (21:30)
[2022-11-25] MEDS ORDERED: CLONIDINE 0.1MG TABLET PO PRN (21:30)
[2022-11-25] MEDS ORDERED: DOCUSATE SODIUM 100MG CAPSULE PO PRN (21:30)
[2022-11-25] MEDS ORDERED: IPRATROPIUM/ALBUTEROL 0.5-3(2.5)MG/3ML NEB HHN PRN (21:30)
[2022-11-25] MEDS ORDERED: ONDANSETRON HCL 4MG/2ML INJ IV PRN (21:30)
[2022-11-25] MEDS ORDERED: KETOROLAC 30MG/ML VIAL IV PRN (22:15)
[2022-11-25] MEDS ORDERED: TRAMADOL 50MG TABLET PO PRN (22:30)
[2022-11-25] MEDS: HYDRALAZINE HCL 25MG TABLET PO SCH (23:20)
[2022-11-25] MEDS: OMEPRAZOLE 20MG CAPSULE EXTENDED RELEASE PO SCH (23:49)
[2022-11-26 00:04] LABS: CREATINE KINASE 152 IU/L (26-192); CREATINE KINASE MB FRACTION 1.4 ng/mL (0.5-3.6)
[2022-11-26] MEDS ORDERED: HYDRALAZINE 20MG/ML VIAL IV NR (02:00)
[2022-11-26] MEDS ORDERED: HYDROCODONE/ACETAMINOPHEN 5/325MG TABLET PO NR (05:15)
[2022-11-26] MEDS ORDERED: LOSARTAN POTASSIUM 50 MG TABLET PO SCH (09:00)
[2022-11-26] MEDS ORDERED: CALCIUM ACETATE 667MG CAPSULE PO SCH (09:00)
[2022-11-26] MEDS ORDERED: NIFEDIPINE XL 60MG TAB PO SCH (09:00)
[2022-11-26 09:18] LABS: CREATINE KINASE MB FRACTION 1.3 ng/mL (0.5-3.6)
[2022-11-26] MEDS: CALCITRIOL 0.25MCG CAPSULE PO SCH ×2 (13:00→15:01)
[2022-11-26] MEDS: HYDRALAZINE HCL 25MG TABLET PO SCH ×2 (13:00→14:29)
[2022-11-26] MEDS: ACETAMINOPHEN 325MG TABLET PO NR ×2 (14:26→15:01)
[2022-11-26 15:09] VITALS: BP 170/102
== END 2022-11-26 15:47 | disposition home health service (06) | DRG 314 ==
LOC: ER 17:07 → MICUSO 18:49 → SUPCPDRO 21:07
PROVIDERS: ADMIT Internal Medicine; ATTEND Internal Medicine
DX: T82.838A Hemorrhage due to vascular prosthetic devices, implants and grafts, initial encounter (principal); N18.6 End stage renal disease; E87.1 Hypo-osmolality and hyponatremia; I13.2 Hypertensive heart and chronic kidney disease with heart failure and with stage 5 chronic kidney disease, or end stage renal disease; Y84.8 Other medical procedures as the cause of abnormal reaction of the patient, or of later complication, without mention of misadventure at the time of the procedure; Y92.89 Other specified places as the place of occurrence of the external cause; Z79.01 Long term (current) use of anticoagulants; Z99.2 Dependence on renal dialysis; Z87.891 Personal history of nicotine dependence; D63.1 Anemia in chronic kidney disease; E87.8 Other disorders of electrolyte and fluid balance, not elsewhere classified; I50.9 Heart failure, unspecified; Z79.899 Other long term (current) drug therapy; Z91.119 Patient's noncompliance with dietary regimen due to unspecified reason; Z95.2 Presence of prosthetic heart valve
CPT/HCPCS: 36415; 80053; 82550; 82553; 82962; 84484; 85025; 86850; 86900; 99291; J2270; J3490

== ENCOUNTER 2023-04-25 03:43 | Emergency (ER) | payer MEDICARE, MEDICAID ==
[~2023-04-25] VITALS: Ht 170.2 cm; Wt 70.0 kg
[~2023-04-25 03:43] MED LIST changes: -CLON0.2T MT; -LABE100T9 MT; -LOSA100T3 PO; +LOSA100T4 PO; -LOSA50TA41 PO; -NIFE90TA43 PO
[2023-04-25 03:44] VITALS: TEMP 98.4; O2SAT 100
[2023-04-25] MEDS ORDERED: DILTIAZEM HCL 5MG/ML 5ML VIAL IV ONE (04:00)
[2023-04-25 04:21] LABS: BASOPHILS % 1.2 % (0.0-2.0); EOSINOPHILS % 1.5 % (0.0-5.0); HEMOGLOBIN. 11.6 g/dL (12.0-16.0); LYMPHOCYTES % 17.6 % (20.0-50.0); MEAN CORPUSCULAR HEMOGLOBIN 30.5 pg (28.0-32.0); MEAN CORPUSCULAR HGB CONC 31.4 g/dL (31.0-37.0); MEAN PLATELET VOLUME 8.7 fl (7.4-10.4); MONOCYTES % 5.8 % (2.0-8.0); NEUTROPHILS % 73.9 % (40.0-76.0); PLATELET 209 x1000/uL (130-400); RED BLOOD CELL COUNT 3.81 mill/uL (4.2-5.4); RED CELL DISTRIBUTION WIDTH 20.6 % (11.6-14.6); WHITE BLOOD COUNT 8.6 x1000/uL (4.5-11.0)
[2023-04-25 04:23] LABS: DIFFERENTIAL COMMENT 1
[2023-04-25 04:37] LABS: CHLORIDE 98 mEq/L (98-107); INDEX HEMOLYSI 1 (1-3); INDEX ICTERIC 1 (1-4); INDEX LIPEMIC 1 (1-3); POTASSIUM 5.4 mEq/L (3.5-5.1); SODIUM 131 mEq/L (136-145)
[2023-04-25] MEDS ORDERED: ASPIRIN 325MG TABLET PO ONE (04:45)
[2023-04-25] MEDS ORDERED: MORPHINE SULFATE 4 MG/ML CPJ (NOT FOR IM USE) IV ONE (04:45)
[2023-04-25 04:49] LABS: ALANINE AMINOTRANSFERASE 14 IU/L (13-61); ALBUMIN 3.4 g/dL (3.4-5.0); ASPARTATE AMINOTRANSFERASE 19 IU/L (15-37); BILIRUBIN TOTAL 0.6 mg/dL (0.1-1.0); CALCIUM 11.2 mg/dL (8.5-10.1); CARBON DIOXIDE 22 mEq/L (21-32); GLUCOSE 149 mg/dL (70-105); NT PRO B-TYPE NATRIURETIC PEP 26924 pg/mL (5-125); PROTEIN TOTAL 9.1 g/dL (6.0-8.3); TROPONIN I HIGH SENSITIVITY 51 ng/L (<54); UREA NITROGEN BLOOD 36 mg/dL (7-21)
[2023-04-25 04:53] LABS: CREATININE 5.5 mg/dL (0.6-1.3)
[2023-04-25 09:31] VITALS: BP 143/81; PULSE 125; RESP 20
== END 2023-04-25 09:55 | disposition left against medical advice (07) ==
LOC: ER 03:43 → CANBEDREQ 09:24 → ER 09:55
DX: I47.1 Supraventricular tachycardia (principal); I12.0 Hypertensive chronic kidney disease with stage 5 chronic kidney disease or end stage renal disease; N18.6 End stage renal disease; Z79.899 Other long term (current) drug therapy; Z98.890 Other specified postprocedural states
CPT/HCPCS: 99291; 96374; 96375; 80053; 83880; 85025; 84484; 36415; 71045; 93005; J3490; J2270